=== PATIENT | female | born 1965 | race Caucasian/White ===

== ENCOUNTER → 2016-05-05 | Day surgery (SDC) | payer MEDICARE ==
[2016-05-05] VITALS (7 sets, daily range): BP systolic 107–156; BP diastolic 64–97
[~2016-05-05] VITALS: Ht 162.5 cm; Wt 99.8 kg
[~2016-05-05] MED LIST: ACETAMINOPHEN-H1 TA2 PO; ALBUTEROL0.09 MG/A2 IH; ALBUTEROL0.09 MG/A2 INH; ALPRAZOLAM0.5 M3 PO; AMBIEN10 MG PO; ATIVAN0.5 MG PO; BACTRIM DS 8001 TA1 PO; BENTYL10 MG PO; BUSPIRONE15 MG PO; CEPHALEXIN500 M1 PO; CIPROFLOXACIN500 MG PO; CLINDAMYCIN HC300 MG PO; COMBIVENT RESPIM4 GM INH; DAYPRO600 M1 PO; DIFLUCAN150 MG PO; DOCUSATE SODIU100 M2 PO; DOXYCYCLINE HY100 M5 PO; DUONEB 3 MG/3 ML3 M1 INH; FLEXERIL5 MG PO; FLONASE 0.05% 121 EA NAS; GLIMEPIRIDE4 M1 PO; GLIPIZIDE10 M1 PO; GLUCOPHAGE1000 MG PO; HARVONI1 TAB PO; HYDROCODONE BIT1 T11 PO; HYDROXYYZINE PA25 MG PO; INSULIN; JANUVIA100 MG PO; KAPIDEX60 MG PO; KEFLEX500 MG PO; LEVAQUIN750 MG PO; LOPRESSOR25 MG PO; LOSARTAN POTAS100 M1 PO; MACROBID100 M1 PO; MEDROL DOSEPAK4 MG PO; MIRALAX POWDER17 G1 PO; MOTRIN800 MG PO; NAPROSYN500 MG PO; NASONEX0.05 MG/AC NS; NEBULIZER DEVI; NEURONTIN300 MG PO; NEURONTIN800 MG PO; NEXIUM40 MG PO; NORCO 10-325 T1 EACH PO; NORCO 5-325 TA1 EACH PO; PAROXETINE20 MG PO; PEN-VEE K500 MG PO; PERCOCET 325 MG1 TA2 PO; PERCOCET 325 MG1 TA6 PO; PREDNICOT20 MG PO; PREDNISONE1 MG PO; PREDNISONE10 MG PO; PREDNISONE20 M1 PO; PREDNISONE50 MG PO; PRILOSEC20 MG PO; PROVENTIL0.09 MG/A1 INH; PYRIDIUM200 MG PO; QUETIAPINE FUM100 M3 PO; RESTORIL15 MG PO; ROBAXIN750 MG PO; TESSALON PERLE200 MG PO; TOPROL XL25 MG PO; TRAMADOL HCL50 MG PO; TYLENOL W/CODEI1 TA2 PO; VIBRAMYCIN100 MG PO; VICODIN 5/500 505 MG PO; VICODIN 500 MG-1 TAB PO; Vicodin 5/500 505 MG PO; XANAX XR0.5 MG PO; XANAX0.5 MG PO; ZITHROMAX Z PA250 MG PO; Zofran4 MG PO; [UNRECOGNIZED DRUG - SUPPLY] MC
--- NOTE | ~2016-05-05 | O ---
[place], [place] OPERATIVE NOTE [facility]: [facility] [id number] UNIT #: [id number] ROOM: DOCTOR: LAVERNE DARLING MD BIRTHDATE: [birth year] DOS: 05/05/2016 PREOPERATIVE DIAGNOSIS: Recurrent umbilical incisional hernia, possible incarceration. POSTOPERATIVE DIAGNOSIS: Recurrent incarcerated umbilical incisional hernia. PROCEDURE DONE: Repair with mesh. SURGEON: Laverne Darling MD ANESTHESIA: General. DESCRIPTION OF PROCEDURE: After general anesthesia, the patient prepped and draped in normal sterile fashion. The periumbilical vertical incision made, deepened down to the sac, is completely dissected free from the surrounding structure all the way up to the rectus sheath and is completely excised. Further evaluation reveals 2 more hernias, there is a small opening in the lower portion left side of the previous hernia and all these hernias were completely reduced and sac sent for examination. The area of the rectus sheath lateral to the edge of the incision on both side was freed almost 4-5 cm and then released incision made on the rectus sheath on each side to accommodate closure. Using #1 PDS [id number] sutures are used to close the defect and then soft mesh 6 x 6 section on the area of closure and using 2-0 Vicryl, this mesh is tacked down to the already closed fascia. Because of the large subcutaneous defect, ZURDO is inserted through a separate stab wound from the right side and fixed to skin with 3-0 nylon. Subcutaneous tissue closed with 3-0 PDS and the skin of the belly button was also tied down to make a normal looking umbilicus. Once this was completed, second layer with 3-0 PDS, skin with clips. Dressing applied and we will give her a binder. The patient tolerated the procedure well and was sent to room. Laverne Darling MD CM:OPRECORD:OPERATIVE NOTE 1326 [id number] LAVERNE DARLING MD 05/08/16 1420 interface
== END | disposition home or self-care (01) ==
LOC: SDC 05-02 11:00
DX: K42.0 Umbilical hernia with obstruction, without gangrene (principal); F41.9 Anxiety disorder, unspecified; F32.9 Major depressive disorder, single episode, unspecified; M19.90 Unspecified osteoarthritis, unspecified site; J44.9 Chronic obstructive pulmonary disease, unspecified; E11.9 Type 2 diabetes mellitus without complications; K21.9 Gastro-esophageal reflux disease without esophagitis; I10 Essential (primary) hypertension; B19.20 Unspecified viral hepatitis C without hepatic coma; Z86.14 Personal history of Methicillin resistant Staphylococcus aureus infection; Z90.710 Acquired absence of both cervix and uterus; Z98.890 Other specified postprocedural states; F17.210 Nicotine dependence, cigarettes, uncomplicated; Z80.9 Family history of malignant neoplasm, unspecified; Z82.49 Family history of ischemic heart disease and other diseases of the circulatory system

== ENCOUNTER 2016-07-28 16:57 | Emergency (ER) | payer MEDICARE ==
[~2016-07-28] VITALS: Wt 102.1 kg
[2016-07-28 17:31] VITALS: BP 118/92
[2016-07-28 18:17] LABS: BASO # 0.1 10*3/uL (0.0-0.1); BASO % 0.6 % (0.0-1.0); EOS # 0.3 10*3/uL (0.0-0.4); HEMATOCRIT 42.8 % (37.0-47.0); HEMOGLOBIN 14.4 g/dl (12.0-16.0); LYMPH # 3.9 10*3/uL (1.3-4.4); LYMPH % 39.1 % (27.0-41.0); MEAN CORPUSCULAR HGB 32.3 pg (27.0-31.0); MEAN CORPUSCULAR HGB CONC 33.6 g/dl (33.0-37.0); MEAN PLATELET VOLUME 10.5 fl (9.6-12.3); MONO # 0.5 10*3/uL (0.1-1.0); MONO % 5.3 % (3.0-9.0); NEUT # 5.2 10*3/uL (2.3-7.9); NEUT % 51.7 % (47.0-73.0); PLATELET COUNT AUTOMATED 176 10*3/uL (130-400); RED BLOOD COUNT 4.46 10*6/uL (4.10-5.10); RED CELL DISTRI WIDTH 12.7 % (0-14.5)
[2016-07-28 18:34] LABS: ALBUMIN 3.6 gm/dl (3.1-4.5); ALKALINE PHOSPHATASE 83 U/L (45-117); BILIRUBIN, TOTAL 0.3 mg/dl (0.2-1.0); BUN 13 mg/dl (7-24); CARBON DIOXIDE 29 mmol/L (21-32); CHLORIDE 106 mmol/L (98-107); EST GLOM FILT AFRICAN AMERICAN > 60 ml/min; GLUCOSE 98 mg/dL (65-99); POTASSIUM 4.2 mmol/L (3.5-5.1); SGOT/AST 47 IU/L (3-35); SGPT/ALT 50 U/L (12-78); SODIUM 142 mmol/L (136-145)
[2016-07-28] MEDS ORDERED: ZOFRAN ODT4 MG SL (19:15)
[2016-07-28 19:28] LABS: BILIRUBIN NEGATIVE (NEGATIVE); BLOOD NEGATIVE (NEGATIVE); CLARITY SL CLOUDY (CLEAR); COLOR YELLOW (YELLOW); GLUCOSE NEGATIVE (NEGATIVE); KETONE NEGATIVE (NEGATIVE); LEUKO ESTERASE NEGATIVE (NEGATIVE); NITRITE NEGATIVE (NEGATIVE); PH 5.5 (5.0-9.0); PROTEIN NEGATIVE (NEGATIVE); SPECIFIC GRAVITY 1.025 (1.005-1.030); UROBILINOGEN 0.2 E.U./dl (0.2-1.0)
[2016-07-28] MEDS ORDERED: HYDROCODONE BIT1 T11 PO (19:39)
[2016-07-28 19:51] LABS: EPITHELIAL CELLS 0-2; URINE REFLEX COMMENT NO (NO); WBC 0-2 wbc/hpf (0-5)
== END 2016-07-28 19:34 | disposition home or self-care (01) ==
LOC: ED 16:57
PROVIDERS: Nurse Practitioner Family
DX: K42.9 Umbilical hernia without obstruction or gangrene (principal); F17.200 Nicotine dependence, unspecified, uncomplicated; E11.65 Type 2 diabetes mellitus with hyperglycemia; Z88.1 Allergy status to other antibiotic agents; Z88.6 Allergy status to analgesic agent; Z79.899 Other long term (current) drug therapy

== ENCOUNTER 2016-09-21 23:24 | Emergency (ER) | payer MEDICARE ==
[~2016-09-21] VITALS: Ht 162.5 cm; Wt 99.8 kg
[~2016-09-21 23:24] MED LIST changes: +ZOFRAN ODT4 MG SL
[2016-09-22 00:14] LABS: BASO # 0.1 10*3/uL (0.0-0.1); BASO % 0.5 % (0.0-1.0); EOS # 0.7 10*3/uL (0.0-0.4); EOS % 5.4 % (1.0-4.0); HEMATOCRIT 36.6 % (37.0-47.0); HEMOGLOBIN 12.5 g/dl (12.0-16.0); IG # 0.1 10*3/uL (0.0-0.1); LYMPH # 4.5 10*3/uL (1.3-4.4); LYMPH % 34.5 % (27.0-41.0); MEAN CELL VOLUME 94.8 fl (81.0-99.0); MEAN CORPUSCULAR HGB 32.4 pg (27.0-31.0); MEAN CORPUSCULAR HGB CONC 34.2 g/dl (33.0-37.0); MEAN PLATELET VOLUME 10.3 fl (9.6-12.3); MONO # 0.8 10*3/uL (0.1-1.0); MONO % 5.9 % (3.0-9.0); NEUT % 53.3 % (47.0-73.0); PLATELET COUNT AUTOMATED 285 10*3/uL (130-400); RED BLOOD COUNT 3.86 10*6/uL (4.10-5.10); RED CELL DISTRI WIDTH 12.9 % (0-14.5); WHITE BLOOD COUNT 13.1 10*3/uL (4.8-10.8)
[2016-09-22 00:19] LABS: ALBUMIN 2.8 gm/dl (3.1-4.5); ALKALINE PHOSPHATASE 88 U/L (45-117); BILIRUBIN, TOTAL 0.3 mg/dl (0.2-1.0); BUN 9 mg/dl (7-24); C-REACTIVE PROTEIN 8.29 MG/DL (0-0.3); CARBON DIOXIDE 27 mmol/L (21-32); CHLORIDE 105 mmol/L (98-107); EST GLOM FILT AFRICAN AMERICAN > 60 ml/min; GLUCOSE 162 mg/dL (65-99); MAGNESIUM 2.4 mg/dL (1.5-2.1); POTASSIUM 3.9 mmol/L (3.5-5.1); SGOT/AST 20 IU/L (3-35); SGPT/ALT 19 U/L (12-78); SODIUM 139 mmol/L (136-145); TOTAL PROTEIN 7.6 gm/dL (6.4-8.2)
[2016-09-22] MEDS ORDERED: NEURONTIN600 MG PO (00:43)
[2016-09-22 07:41] VITALS: BP 99/49
== END 2016-09-22 10:05 | disposition short-term general hospital (02) ==
LOC: ED 23:24
PROVIDERS: Emergency Medicine Emergency Medical Services
DX: T81.4XXA Infection following a procedure, initial encounter (principal); J44.9 Chronic obstructive pulmonary disease, unspecified; E11.9 Type 2 diabetes mellitus without complications; I10 Essential (primary) hypertension; Z98.890 Other specified postprocedural states; Z90.710 Acquired absence of both cervix and uterus; Z79.899 Other long term (current) drug therapy; Z88.1 Allergy status to other antibiotic agents; Z88.6 Allergy status to analgesic agent

== ENCOUNTER → 2016-10-21 | Outpatient (CLI) | payer MEDICARE ==
[~2016-10-21] MED LIST changes: +NEURONTIN600 MG PO
[2016-10-21 13:12] LABS: BUN 12 mg/dl (7-24); EST GLOM FILT AFRICAN AMERICAN > 60 ml/min
== END | disposition home or self-care (01) ==
LOC: LAB 12:38 → CT 13:00
DX: K43.9 Ventral hernia without obstruction or gangrene (principal); R10.9 Unspecified abdominal pain; L02.91 Cutaneous abscess, unspecified

== ENCOUNTER → 2016-10-30 | Outpatient (CLI) | payer MEDICARE, OTHER ==
[2016-10-30 15:14] LABS: BASO # 0.1 10*3/uL (0.0-0.1); BASO % 0.4 % (0.0-1.0); EOS # 0.3 10*3/uL (0.0-0.4); EOS % 2.9 % (1.0-4.0); HEMATOCRIT 43.8 % (37.0-47.0); HEMOGLOBIN 14.6 g/dl (12.0-16.0); LYMPH # 4.7 10*3/uL (1.3-4.4); LYMPH % 42.2 % (27.0-41.0); MEAN CORPUSCULAR HGB 31.3 pg (27.0-31.0); MEAN CORPUSCULAR HGB CONC 33.3 g/dl (33.0-37.0); MEAN PLATELET VOLUME 10.1 fl (9.6-12.3); MONO # 0.6 10*3/uL (0.1-1.0); MONO % 5.3 % (3.0-9.0); NEUT # 5.4 10*3/uL (2.3-7.9); NEUT % 48.9 % (47.0-73.0); PLATELET COUNT AUTOMATED 204 10*3/uL (130-400); RED BLOOD COUNT 4.66 10*6/uL (4.10-5.10); RED CELL DISTRI WIDTH 13.8 % (0-14.5); WHITE BLOOD COUNT 11.1 10*3/uL (4.8-10.8)
[2016-10-30 15:43] LABS: PROTHROMBIN TIME 10.2 SECONDS (9.0-12.4)
[2016-10-30 15:45] LABS: ALBUMIN 3.6 gm/dl (3.1-4.5); ALKALINE PHOSPHATASE 85 U/L (45-117); BILIRUBIN, TOTAL 0.5 mg/dl (0.2-1.0); BUN 11 mg/dl (7-24); CARBON DIOXIDE 27 mmol/L (21-32); CHLORIDE 104 mmol/L (98-107); EST GLOM FILT AFRICAN AMERICAN > 60 ml/min; GLUCOSE 171 mg/dL (65-99); POTASSIUM 3.7 mmol/L (3.5-5.1); SGOT/AST 44 IU/L (3-35); SGPT/ALT 54 U/L (12-78); SODIUM 139 mmol/L (136-145); TOTAL PROTEIN 8.5 gm/dL (6.4-8.2)
== END | disposition home or self-care (01) ==
LOC: LAB 14:43
PROVIDERS: Surgery
DX: Z01.818 Encounter for other preprocedural examination (principal); J43.9 Emphysema, unspecified; F17.210 Nicotine dependence, cigarettes, uncomplicated; K43.9 Ventral hernia without obstruction or gangrene

== ENCOUNTER 2016-12-15 00:48 | Emergency (ER) | payer MEDICARE, OTHER ==
[~2016-12-15] VITALS: Ht 165.1 cm; Wt 99.8 kg
[2016-12-15 00:56] VITALS: BP 108/70
[2016-12-15 02:13] LABS: BASO # 0.1 10*3/uL (0.0-0.1); BASO % 0.6 % (0.0-1.0); EOS # 0.3 10*3/uL (0.0-0.4); EOS % 3.4 % (1.0-4.0); HEMATOCRIT 35.7 % (37.0-47.0); HEMOGLOBIN 12.1 g/dl (12.0-16.0); LYMPH # 3.9 10*3/uL (1.3-4.4); MEAN CELL VOLUME 92.7 fl (81.0-99.0); MEAN CORPUSCULAR HGB 31.4 pg (27.0-31.0); MEAN CORPUSCULAR HGB CONC 33.9 g/dl (33.0-37.0); MEAN PLATELET VOLUME 10.1 fl (9.6-12.3); MONO # 0.7 10*3/uL (0.1-1.0); MONO % 7.4 % (3.0-9.0); NEUT # 4.1 10*3/uL (2.3-7.9); PLATELET COUNT AUTOMATED 190 10*3/uL (130-400); RED BLOOD COUNT 3.85 10*6/uL (4.10-5.10); WHITE BLOOD COUNT 9.1 10*3/uL (4.8-10.8)
[2016-12-15 02:28] LABS: ALBUMIN 2.9 gm/dl (3.1-4.5); ALKALINE PHOSPHATASE 79 U/L (45-117); BUN 8 mg/dl (7-24); CHLORIDE 103 mmol/L (98-107); LIPASE 418 U/L (73-393); POTASSIUM 3.4 mmol/L (3.5-5.1); SGOT/AST 26 IU/L (3-35); SGPT/ALT 31 U/L (12-78); SODIUM 138 mmol/L (136-145); TOTAL PROTEIN 7.5 gm/dL (6.4-8.2)
== END 2016-12-15 03:48 | disposition home or self-care (01) ==
LOC: ED 00:48
PROVIDERS: Student in an Organized Health Care Education/Training Program
DX: S31.109A Unspecified open wound of abdominal wall, unspecified quadrant without penetration into peritoneal cavity, initial encounter (principal); I10 Essential (primary) hypertension; E11.9 Type 2 diabetes mellitus without complications; J44.9 Chronic obstructive pulmonary disease, unspecified; F17.200 Nicotine dependence, unspecified, uncomplicated; Z88.1 Allergy status to other antibiotic agents; Z88.6 Allergy status to analgesic agent; Z79.899 Other long term (current) drug therapy; X58.XXXA Exposure to other specified factors, initial encounter; Y93.9 Activity, unspecified; Y92.9 Unspecified place or not applicable; Y99.9 Unspecified external cause status

== ENCOUNTER → 2017-02-13 | Outpatient (CLI) | payer MEDICARE, OTHER | LOC: CT 08:50 | DX: K76.0 Fatty (change of) liver, not elsewhere classified (principal); A49.01 Methicillin susceptible Staphylococcus aureus infection, unspecified site; E11.9 Type 2 diabetes mellitus without complications; T81.4XXA Infection following a procedure, initial encounter; B19.20 Unspecified viral hepatitis C without hepatic coma; Z90.49 Acquired absence of other specified parts of digestive tract; Z90.710 Acquired absence of both cervix and uterus; Z98.890 Other specified postprocedural states ==

== ENCOUNTER → 2017-04-01 | Outpatient (CLI) | payer MEDICARE, OTHER | END | disposition home or self-care (01) | LOC: WOUNDCARE 14:43 | DX: T81.31XA Disruption of external operation (surgical) wound, not elsewhere classified, initial encounter (principal); I10 Essential (primary) hypertension; F41.9 Anxiety disorder, unspecified; E11.9 Type 2 diabetes mellitus without complications; F17.210 Nicotine dependence, cigarettes, uncomplicated; Z90.710 Acquired absence of both cervix and uterus; Z72.89 Other problems related to lifestyle; Y83.8 Other surgical procedures as the cause of abnormal reaction of the patient, or of later complication, without mention of misadventure at the time of the procedure ==

== ENCOUNTER 2017-04-07 21:15 | Inpatient (IN) | payer MEDICARE, OTHER ==
[~2017-04-07] VITALS: Ht 162.5 cm; Wt 98.6 kg
--- NOTE | ~2017-04-07 | EKG ---
[place], [place] ELECTROCARDIOGRAM REPORT NAME: KRISTINA JACK UNIT #: [id number] ROOM: 407 DOCTOR: DEBRA NG,MILDRED BIRTHDATE: [birth year] DOS: 04/07/2017 TIME: 2312 hours. IMPRESSION: 1. Sinus rhythm. 2. Normal QT interval. MILDRED RICHARDSON MD CM:EKGRPT:ELECTROCARDIOGRAM REPORT 1408 1740 MILDRED RICHARDSON MD
--- NOTE | ~2017-04-07 | CON ---
[place], [place] REPORT OF CONSULTATION NAME: KRISTINA JACK UNIT #: [id number] ROOM: 407 DOCTOR: ART MORENO ED.D (ISABELLA) BIRTHDATE: [birth year] DOS: 04/10/2017 HISTORY OF PRESENT ILLNESS: The patient is a 52-year-old female referred by the hospitalist for evaluation of her anxiety. At the present time, this patient is in the intensive care unit [facility]. She states she is currently residing with her partner and she does have 2 children. She is on SSI. Her family physician is Dr. [place] and medical history is pertinent for morbid obesity, COPD, hypertension, coronary artery disease, and anxiety. She states she does smoke 2 packs of cigarettes per day, but is quitting. She rarely drinks alcohol and on occasion does smoke marijuana. Diabetes mellitus type 2. MEDICATIONS: Include albuterol, Nexium, glipizide, losartan, Toprol, Seroquel, and Januvia. This patient was awake, alert and oriented in all three spheres. She does admit to be anxious because she is overwhelmed. At one time, she followed with Dr. Lopez for outpatient psychiatric care and he prescribed Valium, later changing that to Xanax. She states that it made her feel like a zombie and she states that she will not take those type of medications again. She was placed on Seroquel for sleep, but does not like the way it makes her so lethargic. I suggested she might benefit from a medication such as Vistaril. This was relayed to the hospitalist. She does not want any outpatient psychotherapy, but states she will start addressing her problems because she is easily taken advantage of. DIAGNOSIS: Generalized anxiety disorder. RECOMMENDATIONS: The patient would possibly benefit from medications to address her anxiety and sleep issues, although she does not want benzodiazepines. Thank you very much for this consult. ART MORENO ED.D CM:CONSTR:REPORT OF CONSULTATION 1557 04/10/17 4647 interface
--- NOTE | ~2017-04-07 | CON ---
[place], [place] REPORT OF CONSULTATION NAME: KRISTINA JACK [facility] #: [id number] UNIT #: [id number] ROOM: 407 DOCTOR: ARSH HENRY MD BIRTHDATE: [birth year] DOS: 04/11/2017 CONSULTATION REQUESTED BY: Hospitalist services. REASON FOR CONSULTATION: To assess the patient for acute ongoing exacerbation of chronic obstructive pulmonary disease. HISTORY OF PRESENT ILLNESS: A 52-year-old white female known to me, has been followed by the resident clinic. The patient has been noted with symptoms of shortness of breath ongoing for about a week or so. She has been also noted symptoms of wheezing with coughing. The symptoms started with acute cold-like symptoms in the beginning later noted progressive increased respiratory symptom. She has been seen by the primary care physician and was started on tapering dose of prednisone and Levaquin earlier that did not result in improvement and the respiratory symptom progressive worsening continued. She has been currently admitted to the hospital. The patient is being treated for patient acute exacerbation of COPD on 04/09/2017. The patient denies any symptoms of chest pain. The shortness of breath, cough. The patient has been noted partially decreased. The patient has been continued corticosteroids, receiving bronchodilators and other treatments. REVIEW OF SYSTEMS: CONSTITUTIONAL SYMPTOMS: Fatigue and tiredness noted without symptoms of fever or chills. EYES: Denies any burning, redness, discharge. EARS, NOSE AND THROAT: Denies sore throat, hoarseness, otalgia, postnasal drainage or epistaxis. CARDIOVASCULAR: Denies angina pain, palpitation, edema or pain of the lower extremities. GASTROINTESTINAL: Dysphagia, nausea, vomiting, diarrhea, abdominal pain, hematemesis, melena, hematochezia. SKIN: Denies lesions or rashes. CENTRAL NERVOUS SYSTEM: No dizziness, headache, diplopia, syncopal episodes. Remaining systems were reviewed. The patient, they were noted all negative. PAST MEDICAL HISTORY: 1. Reported diagnosis of chronic obstructive pulmonary disease. 2. General anxiety disorder. 3. Gastroesophageal reflux. 4. Umbilical hernia repair previously with recurrence from the past, hernia repair in the umbilical area. 5. Essential hypertension. 6. Chronic obesity. 7. Neuropathy. 8. Type 2 diabetes mellitus as well. PAST SURGICAL HISTORY: 1. Noted with history of bladder surgery. 2. Cholecystectomy. [place], [place] REPORT OF CONSULTATION NAME: KRISTINA JACK UNIT #: [id number] ROOM: 407 DOCTOR: PALMA ROSS MD,ARSH BIRTHDATE: [birth year] 3. Partial hysterectomy. 4. Tonsillectomy. 5. Umbilical hernia repair. SOCIAL HISTORY: The patient is , has 2 children lived at home, has been noted with heavy tobacco use starting since teenager up to 2 packs of cigarettes per day in the past 3 months has decreased the tobacco use to about 10 cigarettes a day. Denies history of alcohol use, illicit drug use. Denies any occupation related pulmonary exposure. FAMILY HISTORY: The patient was unknown for the father. Mother is living, history of coronary artery disease. HOME MEDICATIONS: Listed as use of Ventolin with the nebulizer, Nexium, gabapentin, glipizide, losartan, metoprolol tartrate, Seroquel, and Januvia. DRUG ALLERGIES WERE NOTED: THE PATIENT HAS ALLERGIES TO THE TYLENOL NO. 3 WITH CODEINE AND LEVAQUIN. PHYSICAL EXAMINATION: GENERAL: This is a 52-year-old female who has been currently noted awake and alert without any distress, lying in the bed. Height of 5 feet 4 inches, weight of 117 pounds, BMI 37.3. VITAL SIGNS: The patient shows a normal temperature, respiratory rate of 18-20, heart rate 72-71, blood pressure 126/89-114/68. The pulse oxygen saturation on room air was recorded 95% saturation. HEENT: Moderate obese. Head was atraumatic. Eyes nonicterus. Decreased posterior pharyngeal space, high tongue base crowding of soft tissue structures. Oral mucosa is moist. CARDIOVASCULAR SYSTEM: S1, S2 is audible. LUNGS: Noted with moderate decreased breath sounds with mild to moderate expiratory wheezing, no crackles. ABDOMEN: Soft with moderate obesity. EXTREMITIES: The patient noted without any edema, clubbing, cyanosis. CENTRAL NERVOUS SYSTEM: Cranial nerves 2-12 intact. MUSCULOSKELETAL: No deformities. SKIN: No visible lesions or rashes. LABORATORY DATA: Arterial blood gas, the patient that was done for the patient on the of this month, pH of 7.36, pCO2 of 39, pO2 19 and 4 liter nasal cannula supplementation of oxygen. The CBC of the patient on 04/07/2017 was noted as normal completely. CMP on 04/07/2017 on admission, BUN normal, creatinine minimally elevated as 1.03. Lactic acid on 04/07/2017 was normal as 1.7. Influenza A and B, nasal washing antigen negative. PT/PTT on the was normal. The BMP on the , glucose 274, remaining BMP was normal. Blood cultures . The patient two sets, both noted with no bacterial growth at this time with final culture results pending. The additional 2 culture taken were noted no bacterial growth as well. Sputum culture is noted spontaneous on 04/09/2017, final results no bacterial growth. CBC this morning, normal. Wound culture of the abdomen. The patient noted heavy growth of Staph aureus for this [place], [place] REPORT OF CONSULTATION NAME: KRISTINA JACK UNIT #: [id number] ROOM: [facility] DOCTOR: PALMA ROSS MD,[facility] BIRTHDATE: [birth year] patient from the site of previously treated hernia. The radiology data review for this patient was personally performed. The chest x-ray of the patient, which are reviewed from the PACS images. The patient 2-view on 04/07/2017 does not show any acute pulmonary infiltration. CT scan of the paranasal sinuses without contrast. The patient was also reviewed for this patient shows near Klebsiella complete opacification of left maxillary sinuses as a hypertrophy of the left middle and inferior turbinates. The CT of the chest was done on 04/09/2017 was reviewed and does not show any evidence of pulmonary embolism. There was no lymphadenopathy. Moderate to severe changes of emphysema was noted in the lungs appear to be centrilobular as well as a paraseptal variety. There were no abnormal pulmonary nodules seen. IMPRESSION: 1. The patient who has been currently admitted to the hospital and being treated for acute exacerbation of chronic obstructive pulmonary disease, acute tracheobronchitis for this patient failed outpatient treatment as well as the left maxillary acute sinusitis, bacterial in origin to be considered. 2. Acute bacterial bronchitis with failed outpatient therapy as well. 3. History of chronic nicotine dependence. 4. Abdominal wound. The patient from past hernia in the abdomen with isolation of Staph aureus as well. 5. Moderate obesity was also noted. 6. Uncontrolled diabetes mellitus. I can the use of the corticosteroids. The blood glucose noted more than 500 yesterday. PLAN OF MANAGEMENT: Agree with the reduction of Solu-Medrol for this patient since the wheezing has been improving. Continue abstinence from the tobacco. The patient using nicotine replacement in the form of a nicotine inhaler as well. Antibiotic coverage. The patient to be continued for the medical management of sinusitis. The patient and wound infection at the present time. Addition of changes for the medical hyperglycemia has been made with sliding scale coverage. Any addition or other oral hypoglycemic agents use. Supportive therapy plan and management. Ambulation was advised. Usual care, other supportive therapy, plan of management and care plan. Possible consideration for discharge in the morning as well could be considered. ARSH WALDROP MD CM:CONSTR:REPORT OF CONSULTATION 1445 04/11/17 2386 interface
--- NOTE | ~2017-04-07 | EKG ---
[place], [place] ELECTROCARDIOGRAM REPORT NAME: KRISTINA JACK UNIT #: [id number] ROOM: 407 DOCTOR: MILDRED RICHARDSON MD BIRTHDATE: [birth year] DOS: 04/09/2017 TIME: 1513 Hours. IMPRESSION: 1. Sinus rhythm. 2. Nonspecific ST-T changes. 3. Normal QT interval. MILDRED RICHARDSON MD CM:EKGRPT:ELECTROCARDIOGRAM REPORT 1434 1903 MILDRED RICHARDSON MD
[2017-04-07 17:21] LABS: BASO % 0.4 % (0.0-1.0); EOS # 0.2 10*3/uL (0.0-0.4); EOS % 2.2 % (1.0-4.0); HEMATOCRIT 43.1 % (37.0-47.0); HEMOGLOBIN 14.9 g/dl (12.0-16.0); LYMPH # 3.9 10*3/uL (1.3-4.4); LYMPH % 38.4 % (27.0-41.0); MEAN CELL VOLUME 92.1 fl (81.0-99.0); MEAN CORPUSCULAR HGB 31.8 pg (27.0-31.0); MEAN CORPUSCULAR HGB CONC 34.6 g/dl (33.0-37.0); MEAN PLATELET VOLUME 10.5 fl (9.6-12.3); MONO # 0.5 10*3/uL (0.1-1.0); MONO % 4.9 % (3.0-9.0); NEUT # 5.5 10*3/uL (2.3-7.9); NEUT % 53.9 % (47.0-73.0); PLATELET COUNT AUTOMATED 198 10*3/uL (130-400); RED BLOOD COUNT 4.68 10*6/uL (4.10-5.10); RED CELL DISTRI WIDTH 13.2 % (0-14.5); WHITE BLOOD COUNT 10.1 10*3/uL (4.8-10.8)
[2017-04-07 17:56] LABS: ALBUMIN 3.6 gm/dl (3.1-4.5); ALKALINE PHOSPHATASE 94 U/L (45-117); BUN 10 mg/dl (7-24); CHLORIDE 100 mmol/L (98-107); CREATININE 1.03 mg/dL (0.55-1.02); POTASSIUM 4.2 mmol/L (3.5-5.1); SGOT/AST 54 IU/L (3-35); SGPT/ALT 52 U/L (12-78); SODIUM 135 mmol/L (136-145); TOTAL PROTEIN 8.2 gm/dL (6.4-8.2)
[2017-04-07 21:22] VITALS: BP 149/85
[2017-04-07 22:13] LABS: BILIRUBIN NEGATIVE (NEGATIVE); BLOOD NEGATIVE (NEGATIVE); CLARITY SL CLOUDY (CLEAR); COLOR YELLOW (YELLOW); GLUCOSE 3+ (NEGATIVE); KETONE TRACE (NEGATIVE); LEUKO ESTERASE NEGATIVE (NEGATIVE); NITRITE NEGATIVE (NEGATIVE)
[2017-04-07 22:14] LABS: BASO % 0.3 % (0.0-1.0); EOS % 0.3 % (1.0-4.0); HEMATOCRIT 43.9 % (37.0-47.0); HEMOGLOBIN 15.2 g/dl (12.0-16.0); LYMPH % 11.5 % (27.0-41.0); MEAN CELL VOLUME 91.8 fl (81.0-99.0); MEAN CORPUSCULAR HGB 31.8 pg (27.0-31.0); MEAN CORPUSCULAR HGB CONC 34.6 g/dl (33.0-37.0); MEAN PLATELET VOLUME 11.1 fl (9.6-12.3); MONO # 0.1 10*3/uL (0.1-1.0); MONO % 0.9 % (3.0-9.0); NEUT # 7.7 10*3/uL (2.3-7.9); NEUT % 86.7 % (47.0-73.0); PLATELET COUNT AUTOMATED 201 10*3/uL (130-400); RED BLOOD COUNT 4.78 10*6/uL (4.10-5.10); RED CELL DISTRI WIDTH 13.1 % (0-14.5); WHITE BLOOD COUNT 8.9 10*3/uL (4.8-10.8)
[2017-04-07 22:24] LABS: BACTERIA TRACE
[2017-04-07 22:26] LABS: RBC 51-100 rbc/hpf (0-2)
[2017-04-07 22:30] LABS: ALBUMIN 3.6 gm/dl (3.1-4.5); ALKALINE PHOSPHATASE 104 U/L (45-117); BUN 13 mg/dl (7-24); CHLORIDE 98 mmol/L (98-107); POTASSIUM 4.4 mmol/L (3.5-5.1); SGOT/AST 51 IU/L (3-35); SGPT/ALT 62 U/L (12-78); SODIUM 135 mmol/L (136-145); TOTAL PROTEIN 8.8 gm/dL (6.4-8.2)
[2017-04-07 22:57] VITALS: BP 140/77
[2017-04-08] VITALS (8 sets, daily range): BP systolic 121–148; BP diastolic 40–98
[2017-04-08] MEDS ORDERED: NEURONTIN300 MG PO (00:22)
[2017-04-08] MEDS ORDERED: VENTOLIN 02.5 MG/3 M INH (00:23)
[2017-04-08 06:51] LABS: HEMATOCRIT 39.7 % (37.0-47.0); HEMOGLOBIN 13.9 g/dl (12.0-16.0); MEAN CELL VOLUME 92.3 fl (81.0-99.0); MEAN CORPUSCULAR HGB 32.3 pg (27.0-31.0); MEAN PLATELET VOLUME 10.8 fl (9.6-12.3); PLATELET COUNT AUTOMATED 177 10*3/uL (130-400); RED CELL DISTRI WIDTH 13.1 % (0-14.5)
[2017-04-08 07:12] LABS: PLATELET SUFFICIENCY NORMAL (NORMAL); TOTAL CELLS COUNTED 100 #CELLS
[2017-04-08 07:30] LABS: ACT PARTIAL THROMBO TIME 24.3 SECONDS (20.8-31.5)
[2017-04-08 07:46] LABS: ALBUMIN 3.1 gm/dl (3.1-4.5); BUN 15 mg/dl (7-24); CHLORIDE 97 mmol/L (98-107); CHOLESTEROL 191 mg/dL (<200); POTASSIUM 4.1 mmol/L (3.5-5.1); SGOT/AST 29 IU/L (3-35); SGPT/ALT 50 U/L (12-78); SODIUM 131 mmol/L (136-145); TRIGLYCERIDES 90 mg/dl (<150); VLDL CHOLESTEROL 18 mg/dL (6-40)
[2017-04-08 07:53] LABS: ALKALINE PHOSPHATASE 92 U/L (45-117); HDL CHOLESTEROL 41 mg/dl (40-60); LDL CHOLESTEROL 132 mg/dL (9-159); THYROID STIM HORMONE (HS) 0.393 uIU/ml (0.358-4.75)
[2017-04-08 09:43] LABS: VITAMIN D, 25-HYDROXY 10.5 ng/mL (30-100)
[2017-04-09] VITALS: BP 132/97
[2017-04-09 06:48] LABS: BUN 19 mg/dl (7-24); CHLORIDE 104 mmol/L (98-107); POTASSIUM 4.3 mmol/L (3.5-5.1); SODIUM 139 mmol/L (136-145)
[2017-04-09 06:49] LABS: CREATININE 0.86 mg/dL (0.55-1.02)
[2017-04-09 08:00] VITALS: BP 126/70; BP 130/88
[2017-04-09 12:00] VITALS: BP 120/70; BP 134/88
[2017-04-09 15:29] LABS: ABG BASE EXCESS -1.3 mmol/L (-2.0-2.0); ABG O2 SATURATION 97.5 % (95-97); ARTERIAL BLOOD GAS PCO2 39.2 mmHg (35-45); ARTERIAL BLOOD GAS PH 7.386 (7.35-7.45); ARTERIAL BLOOD GAS PO2 90.1 mmHg (80-90)
[2017-04-09 15:34] LABS: BASO % 0.1 % (0.0-1.0); EOS % 0.1 % (1.0-4.0); HEMATOCRIT 36.2 % (37.0-47.0); HEMOGLOBIN 12.4 g/dl (12.0-16.0); LYMPH # 3.6 10*3/uL (1.3-4.4); LYMPH % 25.5 % (27.0-41.0); MEAN CELL VOLUME 93.8 fl (81.0-99.0); MEAN CORPUSCULAR HGB 32.1 pg (27.0-31.0); MEAN CORPUSCULAR HGB CONC 34.3 g/dl (33.0-37.0); MEAN PLATELET VOLUME 10.5 fl (9.6-12.3); MONO # 0.8 10*3/uL (0.1-1.0); NEUT # 9.5 10*3/uL (2.3-7.9); NEUT % 67.8 % (47.0-73.0); PLATELET COUNT AUTOMATED 175 10*3/uL (130-400); RED BLOOD COUNT 3.86 10*6/uL (4.10-5.10); RED CELL DISTRI WIDTH 13.5 % (0-14.5); WHITE BLOOD COUNT 13.9 10*3/uL (4.8-10.8)
[2017-04-09 15:50] LABS: ALBUMIN 2.7 gm/dl (3.1-4.5); ALKALINE PHOSPHATASE 68 U/L (45-117); BUN 18 mg/dl (7-24); CHLORIDE 108 mmol/L (98-107); CREATININE 0.84 mg/dL (0.55-1.02); SGOT/AST 11 IU/L (3-35); SGPT/ALT 28 U/L (12-78); SODIUM 140 mmol/L (136-145); TOTAL PROTEIN 6.6 gm/dL (6.4-8.2)
[2017-04-09 15:52] LABS: TROPONIN I < 0.015 ng/ml (<0.045)
[2017-04-09 16:00] VITALS: BP 88/50
[2017-04-09 20:00] VITALS: BP 88/50
[2017-04-10] VITALS: BP 99/65
[2017-04-10 04:00] VITALS: BP 106/57
[2017-04-10 08:00] VITALS: BP 102/66
[2017-04-10 12:00] VITALS: BP 116/77
[2017-04-10 20:00] VITALS: BP 114/68
[2017-04-11] VITALS: BP 129/84
[2017-04-11 06:01] LABS: BASO % 0.1 % (0.0-1.0); EOS # 0.1 10*3/uL (0.0-0.4); EOS % 0.8 % (1.0-4.0); HEMATOCRIT 37.1 % (37.0-47.0); HEMOGLOBIN 12.4 g/dl (12.0-16.0); LYMPH # 3.7 10*3/uL (1.3-4.4); LYMPH % 40.9 % (27.0-41.0); MEAN CELL VOLUME 96.4 fl (81.0-99.0); MEAN CORPUSCULAR HGB 32.2 pg (27.0-31.0); MEAN CORPUSCULAR HGB CONC 33.4 g/dl (33.0-37.0); MEAN PLATELET VOLUME 10.4 fl (9.6-12.3); MONO # 0.5 10*3/uL (0.1-1.0); MONO % 5.4 % (3.0-9.0); NEUT # 4.7 10*3/uL (2.3-7.9); NEUT % 52.1 % (47.0-73.0); PLATELET COUNT AUTOMATED 151 10*3/uL (130-400); RED BLOOD COUNT 3.85 10*6/uL (4.10-5.10); RED CELL DISTRI WIDTH 13.5 % (0-14.5)
[2017-04-11 06:27] LABS: BUN 12 mg/dl (7-24); CHLORIDE 108 mmol/L (98-107); POTASSIUM 3.7 mmol/L (3.5-5.1); SODIUM 142 mmol/L (136-145)
[2017-04-11 06:30] LABS: CREATININE 0.71 mg/dL (0.55-1.02)
[2017-04-11 08:00] VITALS: BP 124/80
[2017-04-11 12:00] VITALS: BP 126/89
[2017-04-11 16:00] VITALS: BP 144/88
[2017-04-11 20:00] VITALS: BP 127/80
[2017-04-12] VITALS: BP 135/89
[2017-04-12 08:00] VITALS: BP 131/85
[2017-04-12] MEDS ORDERED: Motrin,Rufen800 MG PO (10:54)
[2017-04-12] MEDS ORDERED: VITAMIN D5000 UNI1 PO (10:54)
[2017-04-12] MEDS ORDERED: CITALOPRAM HYDR20 MG PO (10:54)
[2017-04-12] MEDS ORDERED: PREDNISONE10 MG PO (10:54)
[2017-04-12] MEDS ORDERED: HYDROXYZINE PAM25 M1 PO (10:54)
[2017-04-12] MEDS ORDERED: DOXYCYCLINE100 M3 PO (10:54)
== END 2017-04-12 11:39 | disposition home or self-care (01) | DRG 862 ==
LOC: EDSTATUS 21:15 → ED 21:16 → ICCU 23:30 → EDHOLD 23:30 → 4E 23:30 → ICCU 04-09 15:38 → 4E 04-10 14:21
PROVIDERS: Family Medicine; Family Medicine Adult Medicine; Internal Medicine; Nurse Practitioner
DX: T81.4XXA Infection following a procedure, initial encounter (principal); A41.9 Sepsis, unspecified organism; J18.9 Pneumonia, unspecified organism; G62.9 Polyneuropathy, unspecified; E11.40 Type 2 diabetes mellitus with diabetic neuropathy, unspecified; E11.65 Type 2 diabetes mellitus with hyperglycemia; E66.01 Morbid (severe) obesity due to excess calories; I08.1 Rheumatic disorders of both mitral and tricuspid valves; E87.1 Hypo-osmolality and hyponatremia; K91.89 Other postprocedural complications and disorders of digestive system; J44.0 Chronic obstructive pulmonary disease with (acute) lower respiratory infection; J44.1 Chronic obstructive pulmonary disease with (acute) exacerbation; K43.2 Incisional hernia without obstruction or gangrene; Y83.8 Other surgical procedures as the cause of abnormal reaction of the patient, or of later complication, without mention of misadventure at the time of the procedure; K21.9 Gastro-esophageal reflux disease without esophagitis; F12.10 Cannabis abuse, uncomplicated; J20.9 Acute bronchitis, unspecified; F41.1 Generalized anxiety disorder; F17.210 Nicotine dependence, cigarettes, uncomplicated; I10 Essential (primary) hypertension; Z87.19 Personal history of other diseases of the digestive system; Z88.8 Allergy status to other drugs, medicaments and biological substances; Z71.6 Tobacco abuse counseling; Z88.6 Allergy status to analgesic agent; Z88.1 Allergy status to other antibiotic agents; Z91.048 Other nonmedicinal substance allergy status; Z79.899 Other long term (current) drug therapy; Z98.891 History of uterine scar from previous surgery; Z90.711 Acquired absence of uterus with remaining cervical stump; Z82.49 Family history of ischemic heart disease and other diseases of the circulatory system; Z80.8 Family history of malignant neoplasm of other organs or systems; Z68.37 Body mass index [BMI] 37.0-37.9, adult; Z79.84 Long term (current) use of oral hypoglycemic drugs; Y92.89 Other specified places as the place of occurrence of the external cause

== ENCOUNTER → 2017-05-19 | Outpatient (CLI) | payer MEDICARE, OTHER ==
[~2017-05-19] MED LIST changes: +CITALOPRAM HYDR20 MG PO; +DOXYCYCLINE100 M3 PO; +HYDROXYZINE PAM25 M1 PO; +Motrin,Rufen800 MG PO; +VENTOLIN 02.5 MG/3 M INH; +VITAMIN D5000 UNI1 PO
== END | disposition home or self-care (01) ==
LOC: WOUNDCARE 00:43
DX: T81.89XD Other complications of procedures, not elsewhere classified, subsequent encounter (principal); E11.9 Type 2 diabetes mellitus without complications; I10 Essential (primary) hypertension; K43.2 Incisional hernia without obstruction or gangrene; E66.01 Morbid (severe) obesity due to excess calories; F41.9 Anxiety disorder, unspecified; F17.200 Nicotine dependence, unspecified, uncomplicated; Z90.710 Acquired absence of both cervix and uterus; Z68.36 Body mass index [BMI] 36.0-36.9, adult; Y83.8 Other surgical procedures as the cause of abnormal reaction of the patient, or of later complication, without mention of misadventure at the time of the procedure

== ENCOUNTER → 2017-06-24 | Outpatient (CLI) | payer MEDICARE, OTHER | END | disposition home or self-care (01) | LOC: WOUNDCARE 07:42 | DX: T81.89XA Other complications of procedures, not elsewhere classified, initial encounter (principal); K43.2 Incisional hernia without obstruction or gangrene; E11.9 Type 2 diabetes mellitus without complications; I10 Essential (primary) hypertension; E66.01 Morbid (severe) obesity due to excess calories; F41.9 Anxiety disorder, unspecified; F17.200 Nicotine dependence, unspecified, uncomplicated; Z68.36 Body mass index [BMI] 36.0-36.9, adult; Z90.710 Acquired absence of both cervix and uterus; Y83.8 Other surgical procedures as the cause of abnormal reaction of the patient, or of later complication, without mention of misadventure at the time of the procedure; Y92.89 Other specified places as the place of occurrence of the external cause ==

== ENCOUNTER 2017-09-21 08:49 | Inpatient (IN) | payer MEDICARE, OTHER ==
[2017-09-21] VITALS (7 sets, daily range): BP systolic 115–145; BP diastolic 71–88
[~2017-09-21] VITALS: Ht 162.5 cm; Wt 97.1 kg
--- NOTE | ~2017-09-21 | CON ---
[place], [place] REPORT OF CONSULTATION NAME: KRISTINA JACK UNIT #: [id number] ROOM: 404 DOCTOR: ARSH HENRY MD BIRTHDATE: [birth year] DOS: 09/22/2017 PULMONARY CONSULTATION CONSULTATION REQUESTED BY: Hospitalist services. REASON FOR CONSULTATION: To assess the patient for assessment of COPD with symptoms of shortness of breath. HISTORY OF PRESENT ILLNESS: A 52-year-old white female patient admitted to the hospital. The patient is complaining of significant pain, which she described in the abdomen with a history of incisional hernia. The incisional hernia has been noted long time. The patient has been also noted with symptoms of nausea and vomiting. The patient does complain of symptoms of shortness of breath with the current symptom. She does have some cough without any sputum expectoration. Denies symptoms of fever or chills. Denies symptoms of hemoptysis. The patient denies any symptoms of chest pain. ARSH WALDROP MD CM:CONSTR:REPORT OF CONSULTATION 1309 09/22/17 2252 interface
[2017-09-21 09:18] LABS: BASO % 0.3 % (0.0-1.0); EOS % 0.3 % (1.0-4.0); HEMOGLOBIN 15.9 g/dl (12.0-16.0); LYMPH # 1.3 10*3/uL (1.3-4.4); MEAN CELL VOLUME 94.5 fl (81.0-99.0); MEAN CORPUSCULAR HGB 32.6 pg (27.0-31.0); MEAN CORPUSCULAR HGB CONC 34.6 g/dl (33.0-37.0); MEAN PLATELET VOLUME 10.5 fl (9.6-12.3); MONO # 0.3 10*3/uL (0.1-1.0); MONO % 3.6 % (3.0-9.0); NEUT # 5.9 10*3/uL (2.3-7.9); NEUT % 78.5 % (47.0-73.0); PLATELET COUNT AUTOMATED 160 10*3/uL (130-400); RED BLOOD COUNT 4.87 10*6/uL (4.10-5.10); RED CELL DISTRI WIDTH 13.1 % (0-14.5); WHITE BLOOD COUNT 7.5 10*3/uL (4.8-10.8)
[2017-09-21 09:32] LABS: ALBUMIN 3.5 gm/dl (3.1-4.5); ALKALINE PHOSPHATASE 90 U/L (45-117); BUN 8 mg/dl (7-24); CHLORIDE 103 mmol/L (98-107); CREATININE 0.91 mg/dL (0.55-1.02); LIPASE 174 U/L (73-393); POTASSIUM 3.8 mmol/L (3.5-5.1); SGOT/AST 31 IU/L (3-35); SGPT/ALT 40 U/L (12-78); SODIUM 133 mmol/L (136-145); TOTAL PROTEIN 8.2 gm/dL (6.4-8.2)
[2017-09-21 09:34] LABS: ACT PARTIAL THROMBO TIME 24.3 SECONDS (20.8-31.5)
[2017-09-21 09:53] LABS: BILIRUBIN NEGATIVE (NEGATIVE); BLOOD NEGATIVE (NEGATIVE); CLARITY CLOUDY (CLEAR); COLOR YELLOW (YELLOW); GLUCOSE 1+ (NEGATIVE); KETONE NEGATIVE (NEGATIVE); LEUKO ESTERASE NEGATIVE (NEGATIVE); NITRITE POSITIVE (NEGATIVE); SPECIFIC GRAVITY 1.025 (1.005-1.030)
[2017-09-21 10:06] LABS: BACTERIA 4+; EPITHELIAL CELLS 16-20; WBC 21-30 wbc/hpf (0-5)
[2017-09-22] VITALS: BP 136/87
[2017-09-22 06:04] LABS: BASO % 0.6 % (0.0-1.0); BUN 4 mg/dl (7-24); CHLORIDE 105 mmol/L (98-107); CHOLESTEROL 129 mg/dL (<200); CREATININE 0.79 mg/dL (0.55-1.02); EOS % 0.6 % (1.0-4.0); HDL CHOLESTEROL 27 mg/dl (40-60); HEMATOCRIT 42.2 % (37.0-47.0); LDL CHOLESTEROL 76 mg/dL (9-159); LYMPH # 1.8 10*3/uL (1.3-4.4); LYMPH % 39.1 % (27.0-41.0); MEAN CELL VOLUME 96.6 fl (81.0-99.0); MEAN CORPUSCULAR HGB CONC 33.2 g/dl (33.0-37.0); MEAN PLATELET VOLUME 10.7 fl (9.6-12.3); MONO # 0.3 10*3/uL (0.1-1.0); MONO % 6.6 % (3.0-9.0); NEUT # 2.5 10*3/uL (2.3-7.9); NEUT % 52.7 % (47.0-73.0); PHOSPHOROUS 2.9 mg/dL (2.5-4.9); PLATELET COUNT AUTOMATED 129 10*3/uL (130-400); POTASSIUM 3.6 mmol/L (3.5-5.1); RED BLOOD COUNT 4.37 10*6/uL (4.10-5.10); RED CELL DISTRI WIDTH 13.2 % (0-14.5); SGOT/AST 98 IU/L (3-35); SGPT/ALT 59 U/L (12-78); SODIUM 139 mmol/L (136-145); TOTAL PROTEIN 6.8 gm/dL (6.4-8.2); TRIGLYCERIDES 128 mg/dl (<150); VLDL CHOLESTEROL 26 mg/dL (6-40); WHITE BLOOD COUNT 4.7 10*3/uL (4.8-10.8)
[2017-09-22 06:09] LABS: ALKALINE PHOSPHATASE 93 U/L (45-117); FREE T4 1.17 ng/dl (0.76-1.46)
[2017-09-22 08:00] VITALS: BP 111/84
[2017-09-22 12:00] VITALS: BP 133/92
[2017-09-22] MEDS ORDERED: SEPTDS PO (13:16)
[2017-09-22] MEDS ORDERED: VITAMIN D31000 UNIT PO (13:16)
== END 2017-09-22 14:26 | disposition home or self-care (01) | DRG 394 ==
LOC: ED 08:49 → 4E 10:46 → EDHOLD 10:46 → 4E 10:58
PROVIDERS: Emergency Medicine; Internal Medicine
DX: K42.9 Umbilical hernia without obstruction or gangrene (principal); E44.0 Moderate protein-calorie malnutrition; E11.40 Type 2 diabetes mellitus with diabetic neuropathy, unspecified; D69.6 Thrombocytopenia, unspecified; E11.65 Type 2 diabetes mellitus with hyperglycemia; E11.610 Type 2 diabetes mellitus with diabetic neuropathic arthropathy; E87.1 Hypo-osmolality and hyponatremia; K56.7 Ileus, unspecified; N39.0 Urinary tract infection, site not specified; E66.01 Morbid (severe) obesity due to excess calories; I10 Essential (primary) hypertension; D72.819 Decreased white blood cell count, unspecified; F17.210 Nicotine dependence, cigarettes, uncomplicated; K21.9 Gastro-esophageal reflux disease without esophagitis; F41.1 Generalized anxiety disorder; J44.9 Chronic obstructive pulmonary disease, unspecified; Z71.6 Tobacco abuse counseling; Z90.49 Acquired absence of other specified parts of digestive tract; Z88.6 Allergy status to analgesic agent; Z88.1 Allergy status to other antibiotic agents; Z88.5 Allergy status to narcotic agent; Z91.048 Other nonmedicinal substance allergy status; Z87.01 Personal history of pneumonia (recurrent); Z90.710 Acquired absence of both cervix and uterus; Z82.49 Family history of ischemic heart disease and other diseases of the circulatory system; Z80.9 Family history of malignant neoplasm, unspecified; Z79.899 Other long term (current) drug therapy; Z79.84 Long term (current) use of oral hypoglycemic drugs; Z68.36 Body mass index [BMI] 36.0-36.9, adult

== ENCOUNTER 2018-02-08 17:11 | Emergency (ER) | payer MEDICARE, OTHER ==
[~2018-02-08] VITALS: Ht 162.5 cm; Wt 97.5 kg
[~2018-02-08 17:11] MED LIST changes: +SEPTDS PO; +VITAMIN D31000 UNIT PO
[2018-02-08 17:14] VITALS: BP 135/87
[2018-02-08 18:23] LABS: BASO # 0.1 10*3/uL (0.0-0.1); BASO % 0.6 % (0.0-1.0); EOS # 0.2 10*3/uL (0.0-0.4); EOS % 2.5 % (1.0-4.0); HEMATOCRIT 43.2 % (37.0-47.0); HEMOGLOBIN 15.1 g/dl (12.0-16.0); LYMPH % 33.6 % (27.0-41.0); MEAN CELL VOLUME 96.6 fl (81.0-99.0); MEAN CORPUSCULAR HGB 33.8 pg (27.0-31.0); MEAN PLATELET VOLUME 10.6 fl (9.6-12.3); MONO # 0.5 10*3/uL (0.1-1.0); MONO % 5.2 % (3.0-9.0); NEUT # 5.1 10*3/uL (2.3-7.9); NEUT % 57.8 % (47.0-73.0); PLATELET COUNT AUTOMATED 180 10*3/uL (130-400); RED BLOOD COUNT 4.47 10*6/uL (4.10-5.10); RED CELL DISTRI WIDTH 12.8 % (0-14.5); WHITE BLOOD COUNT 8.9 10*3/uL (4.8-10.8)
[2018-02-08 18:38] LABS: ALBUMIN 3.4 gm/dl (3.1-4.5); ALKALINE PHOSPHATASE 73 U/L (45-117); BUN 6 mg/dl (7-24); CHLORIDE 104 mmol/L (98-107); CREATININE 0.88 mg/dL (0.55-1.02); POTASSIUM 3.9 mmol/L (3.5-5.1); SGOT/AST 82 IU/L (3-35); SGPT/ALT 75 U/L (12-78); SODIUM 137 mmol/L (136-145)
[2018-02-08] MEDS ORDERED: CIPRO250 MG PO (20:09)
[2018-02-08] MEDS ORDERED: FLAGYL500 MG PO (20:09)
[2018-02-08] MEDS ORDERED: DIFLUCAN150 MG PO (20:09)
== END 2018-02-08 20:12 | disposition home or self-care (01) ==
LOC: ED 17:11
PROVIDERS: Nurse Practitioner Family
DX: K43.9 Ventral hernia without obstruction or gangrene (principal); F17.200 Nicotine dependence, unspecified, uncomplicated; Z88.6 Allergy status to analgesic agent; Z88.1 Allergy status to other antibiotic agents; Z79.899 Other long term (current) drug therapy; Z90.710 Acquired absence of both cervix and uterus; Z90.49 Acquired absence of other specified parts of digestive tract

== ENCOUNTER → 2018-05-05 | Outpatient (CLI) | payer MEDICARE, OTHER ==
[~2018-05-05] MED LIST changes: +BUPROPION HCL150 M1 PO; +CIPRO250 MG PO; +CITALOPRAM20 MG PO; +FLAGYL500 MG PO; +KEFLEX500 M1 PO
== END | disposition home or self-care (01) ==
LOC: WOUNDCARE 02:57
DX: T81.89XD Other complications of procedures, not elsewhere classified, subsequent encounter (principal); E11.40 Type 2 diabetes mellitus with diabetic neuropathy, unspecified; E11.51 Type 2 diabetes mellitus with diabetic peripheral angiopathy without gangrene; I10 Essential (primary) hypertension; J44.9 Chronic obstructive pulmonary disease, unspecified; G47.00 Insomnia, unspecified; F41.9 Anxiety disorder, unspecified; Z90.710 Acquired absence of both cervix and uterus; F17.200 Nicotine dependence, unspecified, uncomplicated; Y83.8 Other surgical procedures as the cause of abnormal reaction of the patient, or of later complication, without mention of misadventure at the time of the procedure

== ENCOUNTER 2018-06-29 21:53 | Inpatient (IN) | payer MEDICARE, OTHER ==
[~2018-06-29] VITALS: Ht 165.1 cm; Wt 95.1 kg
[~2018-06-29 21:53] MED LIST changes: -BUPROPION HCL150 M1 PO; -CITALOPRAM20 MG PO
[2018-06-29 21:56] VITALS: BP 99/68
[2018-06-29 23:49] LABS: BASO % 0.3 % (0.0-1.0); EOS # 0.2 10*3/uL (0.0-0.4); EOS % 1.7 % (1.0-4.0); HEMATOCRIT 39.6 % (37.0-47.0); HEMOGLOBIN 13.8 g/dl (12.0-16.0); LYMPH % 22.8 % (27.0-41.0); MEAN CELL VOLUME 97.5 fl (81.0-99.0); MEAN CORPUSCULAR HGB CONC 34.8 g/dl (33.0-37.0); MEAN PLATELET VOLUME 10.5 fl (9.6-12.3); MONO # 0.8 10*3/uL (0.1-1.0); NEUT % 68.7 % (47.0-73.0); PLATELET COUNT AUTOMATED 183 10*3/uL (130-400); RED BLOOD COUNT 4.06 10*6/uL (4.10-5.10); RED CELL DISTRI WIDTH 13.1 % (0-14.5); WHITE BLOOD COUNT 13.1 10*3/uL (4.8-10.8)
[2018-06-30 00:10] LABS: ALKALINE PHOSPHATASE 77 U/L (45-117); BUN 13 mg/dl (7-24); CHLORIDE 101 mmol/L (98-107); CREATININE 0.93 mg/dL (0.55-1.02); POTASSIUM 3.4 mmol/L (3.5-5.1); SGOT/AST 14 IU/L (3-35); SGPT/ALT 23 U/L (12-78); SODIUM 135 mmol/L (136-145); TOTAL PROTEIN 7.8 gm/dL (6.4-8.2)
[2018-06-30 00:30] VITALS: BP 102/64
--- NOTE | 2018-06-30 01:08 | NUR ---
Time: 99 A 53 year old FEMALE admitted to under services of CARLOS MURDCOK DO, Pt. arrived via wheel chair from ER. Chief complaint: ABDIMONAL WALL PAIN. EVON CHANG
[2018-06-30] MEDS ORDERED: CITALOPRAM20 MG PO (01:20)
[2018-06-30] MEDS ORDERED: BUPROPION HCL150 M1 PO (01:21)
--- NOTE | 2018-06-30 01:22 | NUR ---
MED REC COMPLETED WITH PATIENT ALERT AND ORIENTED TO PERSON PLACE AND TIME
--- NOTE | 2018-06-30 01:29 | NUR ---
DR SCHULZ AWARE OF MED REC BEING COMPLETE
[2018-06-30 01:30] VITALS: BP 92/70
--- NOTE | 2018-06-30 02:40 | NUR ---
MEDICATED WITH MORPHINE FOR C/O ABD PAIN. WILL MONITOR
--- NOTE | 2018-06-30 03:21 | NUR ---
KRISTINA JACK [id number] Please refer to the physician's history and physical for past medical history, comorbid conditions, and allergies. Diagnosis: ABD WALL CELLULITIS, FAILURE OF OUTPATIENT TREATM Tony Score: 21,LOW OR NO RISK WOUND DESCRIPTIONS: Location of the wound: middle aspect of lower abdomen Thickness: Partial Size: 0.6cm x 0.8cm x 0.1cm Tunneling: none Undermining: none Sinus Tract: none Presence of Exudate: Serosanguineous Amount: Light Color: Red Odor: None Periwound Skin Appearance: Erythema 29.0cm x 13.0cm warmth, firmness Wound edges: approximated Pain (associated with wound): tender to touch How does patient state this happened? pt stated she followed in the wound care center previously for hernia wound and she stated that Dr. Caruso referred her to [place] but is unable to get in until August. Patient stated she was just in the ER because she was having trouble moving her bowels and voiding. Surface the patient is resting on: Isoflex SKIN PREVENTION RECOMMENDATION: 1. Pressure redistribution support surface as appropriate 2. Elevate heels 3. Remove boots/TEDS every shift and reapply 4. Head of bed 30 degrees as tolerated 5. Assess nutrition and hydration 6. Manage moisture 7. Avoid the use of containment devices while in bed 8. Use absorptive products on surfaces limit layers of linens on bed 9. Turn and reposition every 1-2 hours in bed and every 1 hour in chair as tolerated 10. Weight shifts every 15 minutes while up in chair 11. Offloading with pillows or device to keep heels elevated off bed 12. Monitor skin at least every shift 13. Inspect under medical devices twice a day WOUND TREATMENT RECOMMENDATIONS: Cleanse middle aspect of lower abdomen with nss and apply abd pad daily and prn for soiling. Patient wants to follow up in the wound care center upon discharge.
--- NOTE | 2018-06-30 04:10 | NUR ---
PATIENT RESTING IN BED WITH NO S/S OF DISTRESS. MEDICATION SEEMS EFFECTIVE
[2018-06-30 06:28] LABS: BASO % 0.3 % (0.0-1.0); EOS # 0.2 10*3/uL (0.0-0.4); EOS % 1.6 % (1.0-4.0); HEMATOCRIT 39.5 % (37.0-47.0); HEMOGLOBIN 13.4 g/dl (12.0-16.0); LYMPH # 1.1 10*3/uL (1.3-4.4); LYMPH % 10.7 % (27.0-41.0); MEAN CELL VOLUME 100.5 fl (81.0-99.0); MEAN CORPUSCULAR HGB 34.1 pg (27.0-31.0); MEAN CORPUSCULAR HGB CONC 33.9 g/dl (33.0-37.0); MEAN PLATELET VOLUME 10.7 fl (9.6-12.3); MONO # 0.8 10*3/uL (0.1-1.0); MONO % 7.5 % (3.0-9.0); NEUT # 8.1 10*3/uL (2.3-7.9); NEUT % 79.1 % (47.0-73.0); PLATELET COUNT AUTOMATED 149 10*3/uL (130-400); RED BLOOD COUNT 3.93 10*6/uL (4.10-5.10); RED CELL DISTRI WIDTH 13.2 % (0-14.5); WHITE BLOOD COUNT 10.2 10*3/uL (4.8-10.8)
--- NOTE | 2018-06-30 06:42 | NUR ---
ATTEMPTED TO CALL DR ERICKSON REGARDING CONSULT. NO ANSWER AT THIS TIME AND VOICEMAIL IS FULL.
[2018-06-30 06:45] LABS: BUN 12 mg/dl (7-24); CHLORIDE 104 mmol/L (98-107); CREATININE 0.98 mg/dL (0.55-1.02); PHOSPHOROUS 2.8 mg/dL (2.5-4.9); POTASSIUM 3.4 mmol/L (3.5-5.1); SODIUM 138 mmol/L (136-145)
--- NOTE | 2018-06-30 06:50 | NUR ---
DR ERICKSON AWARE OF CONSULT. NO NEW ORDERS AT THIS TIME
[2018-06-30 08:00] VITALS: BP 128/66
--- NOTE | 2018-06-30 08:00 | NUR ---
Dr. Ammy Stoddard notified of wound care recommendations.
--- NOTE | 2018-06-30 08:04 | NUR ---
PATIENT MEDICATED WITH MORPHINE AT THIS TIME PER ORDER FOR COMPLAINTS OF PAIN 10/10 IN ABSCESS AREA. WILL MONITOR.
--- NOTE | 2018-06-30 08:30 | NUR ---
PATIENT STATES THAT MORPHINE HAS BEEN EFFECTIVE. NO FURTHER COMPLAINTS
--- NOTE | 2018-06-30 09:00 | NUR ---
[employer]ical Sales Representatives in to talk to patient. Patient states lives at home with alone. There are few steps in the home. Physician: areli calle Pharmacy: [facility] Home health services: none Patient's level of ADLs: INDEPENDENT Patient has working utilities: all working DME: nebulizer Follow-up physician's appointment after d/c: will be made by hospitalist nurse director upon discharge Does patient want to access PORTAL?: no Discharge plan discussed with patient, patient lives at home alone. she states she is independent in adls and ambulation, patient states she will be going home when able and denies any home needs. HUDSON CHRISTINE
--- NOTE | 2018-06-30 11:21 | NUR ---
PHYSICAL THERAPY PAtient requests no PT this date due to pain. Thank you for this referral. Laurel Somers,PT
[2018-06-30 12:00] VITALS: BP 120/74
[2018-06-30 16:00] VITALS: BP 92/71
--- NOTE | 2018-06-30 16:18 | NUR ---
PT MEDICATED WITH MORPHINE AT THIS TIME FOR COMPLAINTS OF 10/10 PAIN IN ABD. WILL MONITOR
--- NOTE | 2018-06-30 17:00 | NUR ---
PER PATIENT, MORPHINE HAS BEEN EFFECTIVE. NO FURTHER COMPLAINTS.
[2018-06-30 20:00] VITALS: BP 98/67
--- NOTE | 2018-06-30 20:40 | NUR ---
AWAKE/ALERT FOR SHIFT ASSESSMENT. RESPIRATIONS EASY/REG ON RA. IV ABX INFUSING ODERED. BED IN LOW POSITION, WHEELS LOCKED, CALL LIGHT IN REACH. WILL MONITOR.
--- NOTE | 2018-06-30 22:23 | NUR ---
PATIENT MEDICATED WITH PRN MORPHINE ORDERED FOR C/O ABDOMINAL PAIN RATED 10/10
--- NOTE | 2018-06-30 23:40 | NUR ---
EARLIER MORPHINE APPEARS EFFECTIVE. PATIENT SLEEPING. NO S/S OF DISTRESS NOTED. CALL LIGHT IN REACH.
[2018-07-01] VITALS (7 sets, daily range): BP systolic 92–116; BP diastolic 50–80
--- NOTE | 2018-07-01 04:37 | NUR ---
NOTIFIED DR AGARWAL OF PATIENTS MANUAL BP 98/60 AND WANTING NEXT DOSE OF MORPHINE FOR AB PAIN 10/20. STATED TO HOLD THE MORPHINE RIGHT NOW AND HE WILL TAKE A LOOK AT HER CHART.
--- NOTE | 2018-07-01 05:01 | NUR ---
PATIENT MEDICATED WITH 1X DOSE TORADOL ORDERED FOR C/O ABDOMINAL PAIN RATED 8/10
[2018-07-01 06:10] LABS: BUN 7 mg/dl (7-24); CHLORIDE 106 mmol/L (98-107); CREATININE 0.82 mg/dL (0.55-1.02); POTASSIUM 3.8 mmol/L (3.5-5.1); SODIUM 138 mmol/L (136-145)
[2018-07-01 06:25] LABS: BASO # 0.1 10*3/uL (0.0-0.1); BASO % 0.4 % (0.0-1.0); EOS # 0.1 10*3/uL (0.0-0.4); EOS % 0.9 % (1.0-4.0); HEMATOCRIT 35.1 % (37.0-47.0); HEMOGLOBIN 11.9 g/dl (12.0-16.0); LYMPH # 2.8 10*3/uL (1.3-4.4); LYMPH % 19.9 % (27.0-41.0); MEAN CELL VOLUME 101.4 fl (81.0-99.0); MEAN CORPUSCULAR HGB 34.4 pg (27.0-31.0); MEAN CORPUSCULAR HGB CONC 33.9 g/dl (33.0-37.0); MEAN PLATELET VOLUME 10.8 fl (9.6-12.3); MONO # 1.1 10*3/uL (0.1-1.0); MONO % 7.7 % (3.0-9.0); NEUT # 9.8 10*3/uL (2.3-7.9); NEUT % 70.5 % (47.0-73.0); PLATELET COUNT AUTOMATED 168 10*3/uL (130-400); RED BLOOD COUNT 3.46 10*6/uL (4.10-5.10); RED CELL DISTRI WIDTH 13.2 % (0-14.5); WHITE BLOOD COUNT 13.9 10*3/uL (4.8-10.8)
--- NOTE | 2018-07-01 06:30 | NUR ---
PATIENT STATES EARLIER TORADOL WORKED BETTER THAN THE MORPHINE.
--- NOTE | 2018-07-01 09:00 | NUR ---
case management visits with patient, patient states she will be going home when able and denies any home needs
--- NOTE | 2018-07-01 09:32 | NUR ---
PATIENT RECEIVED TORADOL FOR PAIN IN THE LOWER ABD RATED 7/10.
--- NOTE | 2018-07-01 10:40 | NUR ---
PHYSICAL THERAPY PAtient reports she is 100 % (I) with all mobility and requires no PT services. D/c PT at this time. Thank you for this referral. Laurel Somers,PT
--- NOTE | 2018-07-01 11:18 | NUR ---
Occupational Therapy evaluation offered but patient reports that she is in too much pain. She also denies need for any OT as she is independent in all ADLs,mobility and transfers. Discharge OT referral per patient's request. Thank you. Phoebe Kilgore OTR/Kvng
--- NOTE | 2018-07-01 12:36 | NUR ---
Nutritional Support Services Note: Pt with dx of poor DM control, wound to lower abdomen. Pt refuses diet instruction and diet copy. States she doesn't follow a diet and will not follow it at home. Explained rationale of diet to pt she continues to refuse copy and instruction. Encouraged follow up if needed. Kya Hare Rdn Ld
--- NOTE | 2018-07-01 19:30 | NUR ---
CHANGED DRESSING TO PATIENTS ABDOMIN AT THIS TIME. PLEASANT AND COOPERATIVE WITH CARE. RESPIRATIONS EASY/REG ON RA. BED IN LOW POSITION. WHEELS LOCKED, CALL LIGHT IN REACH
--- NOTE | 2018-07-01 21:45 | NUR ---
PATIENT MEDICATED WITH PRN TORADOL ORDERED FOR C/O ABDOMINAL PAIN RATED 10/10, WORSENED WITH MOVEMENT. DRESSING CHANGED AT THIS TIME.
[2018-07-02] VITALS: BP 121/62
--- NOTE | 2018-07-02 06:01 | NUR ---
Spoke with Dr. Pimentel regarding new skin impairments in the lower abdomen and the description of the lower abdomen he stated to notify Dr. Caruso regarding new skin impairments and patient's condition. This nurse also informed him that she was crying out in pain.
--- NOTE | 2018-07-02 06:10 | NUR ---
Spoke with Dr. Caruso regarding new skin impariments noted to lower abdomen and the increase amount of pain. He stated he will put something in for pain and he will come in early to see her.
--- NOTE | 2018-07-02 06:13 | NUR ---
JACKKRISTINA Reagan [id number] Please refer to the physician's history and physical for past medical history, comorbid conditions, and allergies. Diagnosis: ABD WALL CELLULITIS, FAILURE OF OUTPATIENT TREATM Tony Score: 21,LOW OR NO RISK WOUND DESCRIPTIONS: (new skin impairments) Location of the wound: middle aspect of lower abdomen right side Thickness: Full Size: 2.0cm x 1.5cm x 0.1cm Tunneling: none Undermining: none Sinus Tract: none Presence of Exudate: Serosanguineous Amount: Moderate Color: Red, yellow, purple Odor: None Periwound Skin Appearance: Erythema 37.0cm x 19.0cm warmth, firmness Wound edges: approximated Pain (associated with wound): very tender to touch crying out in pain Location of the wound: middle aspect of lower abdomen (middle wound) Thickness: Full Size: 1.0cm x 1.0cm x 0.1cm Tunneling: none Undermining: none Sinus Tract: none Presence of Exudate: Serosanguineous Amount: Moderate Color: Red, yellow, purple Odor: None Periwound Skin Appearance: Erythema 37.0cm x 19.0cm warmth, firmness Wound edges: approximated Pain (associated with wound): very tender to touch crying out in pain Location of the wound: middle aspect of lower abdomen left side Thickness: Full Size: 1.5cm x 1.7cm x 0.1cm Tunneling: none Undermining: none Sinus Tract: none Presence of Exudate: Serosanguineous Amount: Moderate Color: Red, yellow, purple Odor: None Periwound Skin Appearance: Erythema 37.0cm x 19.0cm warmth, firmness Wound edges: approximated Pain (associated with wound): very tender to touch crying out in pain Surface the patient is resting on: Isoflex SKIN PREVENTION RECOMMENDATION: 1. Pressure redistribution support surface as appropriate 2. Elevate heels 3. Remove boots/TEDS every shift and reapply 4. Head of bed 30 degrees as tolerated 5. Assess nutrition and hydration 6. Manage moisture 7. Avoid the use of containment devices while in bed 8. Use absorptive products on surfaces limit layers of linens on bed 9. Turn and reposition every 1-2 hours in bed and every 1 hour in chair as tolerated 10. Weight shifts every 15 minutes while up in chair 11. Offloading with pillows or device to keep heels elevated off bed 12. Monitor skin at least every shift 13. Inspect under medical devices twice a day WOUND TREATMENT RECOMMENDATIONS: imaging studies due to new skin impairments. possible debridement of lower abdomen. Cleanse abdomen with nss and apply sureprep around the wound maxorb to wounds then cover with abd pad daily and prn for soiling.
[2018-07-02 07:06] LABS: BASO % 0.4 % (0.0-1.0); EOS # 0.3 10*3/uL (0.0-0.4); EOS % 2.6 % (1.0-4.0); HEMATOCRIT 34.3 % (37.0-47.0); HEMOGLOBIN 11.7 g/dl (12.0-16.0); LYMPH # 2.8 10*3/uL (1.3-4.4); LYMPH % 27.1 % (27.0-41.0); MEAN CELL VOLUME 99.4 fl (81.0-99.0); MEAN CORPUSCULAR HGB 33.9 pg (27.0-31.0); MEAN CORPUSCULAR HGB CONC 34.1 g/dl (33.0-37.0); MEAN PLATELET VOLUME 10.2 fl (9.6-12.3); MONO # 0.6 10*3/uL (0.1-1.0); MONO % 6.2 % (3.0-9.0); NEUT # 6.4 10*3/uL (2.3-7.9); PLATELET COUNT AUTOMATED 162 10*3/uL (130-400); RED BLOOD COUNT 3.45 10*6/uL (4.10-5.10); WHITE BLOOD COUNT 10.1 10*3/uL (4.8-10.8)
[2018-07-02 07:24] LABS: CHLORIDE 110 mmol/L (98-107); POTASSIUM 3.8 mmol/L (3.5-5.1); SODIUM 140 mmol/L (136-145)
[2018-07-02 07:29] LABS: BUN 8 mg/dl (7-24); CREATININE 0.78 mg/dL (0.55-1.02)
[2018-07-02 08:00] VITALS: BP 110/71
--- NOTE | 2018-07-02 08:02 | NUR ---
INFORMED THAT WOUND CULTURE FINAL RESULTS W/ MRSA
--- NOTE | 2018-07-02 08:38 | NUR ---
Appointment card given to patient for outpatient wound care appointment on 07/06/18 @ 10:30am
--- NOTE | 2018-07-02 09:54 | NUR ---
PATIENT MEDICATED WITH TORADOL FOR ABD PAIN 01/20. WILL MONITOR.
--- NOTE | 2018-07-02 10:47 | NUR ---
TORADOL EFFECTIVE FOR PAIN
--- NOTE | 2018-07-02 11:40 | NUR ---
PT CONTNUES TO DENY HOME NEEDS AT THIS TIME. STATES SHE WILL WAIT TO SEE IF SHE HAS TO HAVE ANY SURGERY BEFORE DECIDING.
[2018-07-02 12:00] VITALS: BP 107/74
--- NOTE | 2018-07-02 13:37 | NUR ---
PATIENT MEDICATED WITH MORPHINE FOR 10/10 ABDOMINAL PAIN. WILL MONITOR
--- NOTE | 2018-07-02 14:00 | NUR ---
IV started left hand with #22 angiocath after 0 attempts. The IV site was prepped with Chloraprep. Heparin lock attached. Sterile dressing applied. Patient tolerated precedure well. Procedure performed according to [facility] policy & procedure. DURGA PORTILLO
--- NOTE | 2018-07-02 14:00 | NUR ---
Hep Lock discontinued, GEOVANNA. Site symptomatic, LEAKING AT SITE. Pressure applied. Sterile dressing applied. DURGA PORTILLO
--- NOTE | 2018-07-02 14:37 | NUR ---
PRN MORPHINE EFFECTIVE FOR PAIN.
[2018-07-02 16:00] VITALS: BP 113/68
[2018-07-02 20:00] VITALS: BP 107/77
[2018-07-03] VITALS: BP 108/61
--- NOTE | 2018-07-03 02:03 | NUR ---
PATIENT MEDICATED WITH PRN MORPHINE ORDERED FOR C/O LOWER ABDOMINAL PAIN RATED 10/10
[2018-07-03 06:29] LABS: BASO % 0.4 % (0.0-1.0); EOS # 0.4 10*3/uL (0.0-0.4); EOS % 4.8 % (1.0-4.0); HEMATOCRIT 34.9 % (37.0-47.0); HEMOGLOBIN 11.7 g/dl (12.0-16.0); LYMPH # 2.6 10*3/uL (1.3-4.4); LYMPH % 34.9 % (27.0-41.0); MEAN CELL VOLUME 101.5 fl (81.0-99.0); MEAN CORPUSCULAR HGB CONC 33.5 g/dl (33.0-37.0); MEAN PLATELET VOLUME 10.2 fl (9.6-12.3); MONO # 0.5 10*3/uL (0.1-1.0); MONO % 6.9 % (3.0-9.0); NEUT % 52.3 % (47.0-73.0); PLATELET COUNT AUTOMATED 201 10*3/uL (130-400); RED BLOOD COUNT 3.44 10*6/uL (4.10-5.10); RED CELL DISTRI WIDTH 13.1 % (0-14.5); WHITE BLOOD COUNT 7.6 10*3/uL (4.8-10.8)
[2018-07-03 06:51] LABS: BUN 6 mg/dl (7-24); CHLORIDE 109 mmol/L (98-107); CREATININE 0.78 mg/dL (0.55-1.02); SODIUM 141 mmol/L (136-145)
[2018-07-03 08:00] VITALS: BP 114/73
--- NOTE | 2018-07-03 08:04 | NUR ---
PT MEDICATED WITH IV MORPHINE PER PRN ORDER FOR C/O LOWER ABD PAIN. RATES PAIN /. WILL MONITOR EFFECTIVENESS. NEW DRESSING APPLIED TO LOWER ABD PER ORDER. PT TOLERATED WELL. WILL CONTINUE TO MONITOR. VSS. CALL LIGHT WITHIN REACH.
--- NOTE | 2018-07-03 09:00 | NUR ---
IV MORPHINE EFFECTIVE PER PT. WILL CONTINUE TO MONITOR.
[2018-07-03 12:00] VITALS: BP 111/74
--- NOTE | 2018-07-03 14:12 | NUR ---
IN TO SEE PATIENT AND OKAY TO DISCHARGE FROM HIS STANDPOINT.
[2018-07-03] MEDS ORDERED: ZYVOX600 MG PO (15:21)
[2018-07-03] MEDS ORDERED: DOXYCYCLINE100 M3 PO (15:24)
--- NOTE | 2018-07-03 15:32 | NUR ---
PATIENT'S FAMILY HERE TO PICK PATIENT UP. PATIENT REFUSING DRESSING CHANGE AT THIS TIME. PT REFUSING DISCHARGE PHOTO.
== END 2018-07-03 15:32 | disposition home or self-care (01) | DRG 872 ==
LOC: ED 21:53 → EDHOLD 06-30 00:29 → 4E 06-30 00:29
PROVIDERS: Internal Medicine; Nurse Practitioner Family; Student in an Organized Health Care Education/Training Program; ADMIT Internal Medicine
DX: A41.9 Sepsis, unspecified organism (principal); L03.311 Cellulitis of abdominal wall; E87.1 Hypo-osmolality and hyponatremia; E44.0 Moderate protein-calorie malnutrition; L02.211 Cutaneous abscess of abdominal wall; E87.6 Hypokalemia; I10 Essential (primary) hypertension; K21.9 Gastro-esophageal reflux disease without esophagitis; F41.1 Generalized anxiety disorder; E11.40 Type 2 diabetes mellitus with diabetic neuropathy, unspecified; J44.9 Chronic obstructive pulmonary disease, unspecified; E11.65 Type 2 diabetes mellitus with hyperglycemia; F17.210 Nicotine dependence, cigarettes, uncomplicated; E66.01 Morbid (severe) obesity due to excess calories; E55.9 Vitamin D deficiency, unspecified; K43.9 Ventral hernia without obstruction or gangrene; Z88.1 Allergy status to other antibiotic agents; Z88.6 Allergy status to analgesic agent; Z91.048 Other nonmedicinal substance allergy status; Z90.49 Acquired absence of other specified parts of digestive tract; Z90.710 Acquired absence of both cervix and uterus; Z98.891 History of uterine scar from previous surgery; Z82.49 Family history of ischemic heart disease and other diseases of the circulatory system; Z80.9 Family history of malignant neoplasm, unspecified; Z79.899 Other long term (current) drug therapy; Z68.34 Body mass index [BMI] 34.0-34.9, adult

== ENCOUNTER → 2018-10-01 | Outpatient (CLI) | payer MEDICARE, OTHER ==
[~2018-10-01] MED LIST changes: +BUPROPION HCL150 M1 PO; +CITALOPRAM20 MG PO; +ZYVOX600 MG PO
== END | disposition home or self-care (01) ==
LOC: CT 09-30 08:00
DX: K43.9 Ventral hernia without obstruction or gangrene (principal); T88.9XXS Complication of surgical and medical care, unspecified, sequela; R11.2 Nausea with vomiting, unspecified; Z90.49 Acquired absence of other specified parts of digestive tract

== ENCOUNTER 2018-12-07 13:14 | Emergency (ER) | payer MEDICARE, OTHER ==
[~2018-12-07] VITALS: Ht 165.1 cm; Wt 95.7 kg
[2018-12-07 13:16] VITALS: BP 144/98
== END 2018-12-07 15:41 | disposition home or self-care (01) ==
LOC: ED 13:14
DX: S63.502A Unspecified sprain of left wrist, initial encounter (principal); S60.042A Contusion of left ring finger without damage to nail, initial encounter; F17.200 Nicotine dependence, unspecified, uncomplicated; Z88.6 Allergy status to analgesic agent; Z88.1 Allergy status to other antibiotic agents; Z79.899 Other long term (current) drug therapy; W01.0XXA Fall on same level from slipping, tripping and stumbling without subsequent striking against object, initial encounter; Y93.89 Activity, other specified; Y92.89 Other specified places as the place of occurrence of the external cause; Y99.8 Other external cause status

== ENCOUNTER 2019-03-09 00:45 | Emergency (ER) | payer MEDICARE, OTHER ==
[~2019-03-09] VITALS: Wt 94.8 kg
[2019-03-09 00:45] VITALS: BP 103/49
[2019-03-09] MEDS ORDERED: FARXIGA5 M1 PO (00:58)
[2019-03-09 01:38] LABS: BASO # 0.1 10*3/uL (0.0-0.1); BASO % 0.5 % (0.0-1.0); EOS # 0.9 10*3/uL (0.0-0.4); EOS % 6.8 % (1.0-4.0); HEMATOCRIT 34.5 % (37.0-47.0); HEMOGLOBIN 11.6 g/dl (12.0-16.0); LYMPH # 4.4 10*3/uL (1.3-4.4); MEAN CELL VOLUME 100.3 fl (81.0-99.0); MEAN CORPUSCULAR HGB 33.7 pg (27.0-31.0); MEAN CORPUSCULAR HGB CONC 33.6 g/dl (33.0-37.0); MEAN PLATELET VOLUME 9.7 fl (9.6-12.3); MONO # 0.9 10*3/uL (0.1-1.0); NEUT # 6.8 10*3/uL (2.3-7.9); NEUT % 51.6 % (47.0-73.0); PLATELET COUNT AUTOMATED 369 10*3/uL (130-400); RED BLOOD COUNT 3.44 10*6/uL (4.10-5.10); RED CELL DISTRI WIDTH 14.2 % (0-14.5); WHITE BLOOD COUNT 13.2 10*3/uL (4.8-10.8)
[2019-03-09 01:56] LABS: ALBUMIN 2.8 gm/dl (3.1-4.5); ALKALINE PHOSPHATASE 64 U/L (45-117); BUN 4 mg/dl (7-24); CHLORIDE 105 mmol/L (98-107); CREATININE 0.84 mg/dL (0.55-1.02); POTASSIUM 2.9 mmol/L (3.5-5.1); SGOT/AST 23 IU/L (3-35); SGPT/ALT 25 U/L (12-78); SODIUM 139 mmol/L (136-145); TOTAL PROTEIN 6.6 gm/dL (6.4-8.2)
[2019-03-09] MEDS ORDERED: CEPHALEXIN500 M1 PO (03:53)
== END 2019-03-09 04:08 | disposition home or self-care (01) ==
LOC: ED 00:45
PROVIDERS: Emergency Medicine
DX: T81.31XA Disruption of external operation (surgical) wound, not elsewhere classified, initial encounter (principal); L76.34 Postprocedural seroma of skin and subcutaneous tissue following other procedure; E11.42 Type 2 diabetes mellitus with diabetic polyneuropathy; J44.9 Chronic obstructive pulmonary disease, unspecified; K21.9 Gastro-esophageal reflux disease without esophagitis; I10 Essential (primary) hypertension; E66.01 Morbid (severe) obesity due to excess calories; M19.90 Unspecified osteoarthritis, unspecified site; F17.200 Nicotine dependence, unspecified, uncomplicated; Z79.899 Other long term (current) drug therapy; Z88.6 Allergy status to analgesic agent; Z88.1 Allergy status to other antibiotic agents; Y83.8 Other surgical procedures as the cause of abnormal reaction of the patient, or of later complication, without mention of misadventure at the time of the procedure; Y92.89 Other specified places as the place of occurrence of the external cause

== ENCOUNTER 2020-01-24 02:24 | Emergency (ER) | payer MEDICARE, OTHER ==
[~2020-01-24] VITALS: Ht 162.5 cm; Wt 95.7 kg
[~2020-01-24 02:24] MED LIST changes: +FARXIGA5 M1 PO
[2020-01-24] MEDS ORDERED: VIBRAMYCIN100 MG PO (03:25)
[2020-01-24 03:34] VITALS: BP 131/81
[2020-01-24] MEDS ORDERED: SEPTDS PO (11:06)
[2020-01-24] MEDS ORDERED: POLYSPORIN OINT15 GM T (11:06)
== END 2020-01-24 03:35 | disposition home or self-care (01) ==
LOC: ED 02:24
DX: L73.9 Follicular disorder, unspecified (principal); L02.01 Cutaneous abscess of face; J44.9 Chronic obstructive pulmonary disease, unspecified; K21.9 Gastro-esophageal reflux disease without esophagitis; I10 Essential (primary) hypertension; E11.9 Type 2 diabetes mellitus without complications; F41.9 Anxiety disorder, unspecified; M19.90 Unspecified osteoarthritis, unspecified site; Z88.5 Allergy status to narcotic agent; Z88.8 Allergy status to other drugs, medicaments and biological substances; Z79.899 Other long term (current) drug therapy

== ENCOUNTER 2020-01-24 08:12 | Emergency (ER) | payer MEDICARE, OTHER ==
[~2020-01-24] VITALS: Ht 165.1 cm; Wt 95.7 kg
[2020-01-24 08:18] VITALS: BP 132/80
[2020-01-24 09:32] LABS: BASO # 0.1 10*3/uL (0.0-0.1); BASO % 0.4 % (0.0-1.0); EOS # 0.1 10*3/uL (0.0-0.4); EOS % 0.5 % (1.0-4.0); HEMATOCRIT 46.6 % (37.0-47.0); LYMPH # 2.2 10*3/uL (1.3-4.4); LYMPH % 17.1 % (27.0-41.0); MEAN CELL VOLUME 96.9 fl (81.0-99.0); MEAN CORPUSCULAR HGB 32.4 pg (27.0-31.0); MEAN CORPUSCULAR HGB CONC 33.5 g/dl (33.0-37.0); MEAN PLATELET VOLUME 10.3 fl (9.6-12.3); MONO # 0.9 10*3/uL (0.1-1.0); MONO % 6.6 % (3.0-9.0); NEUT # 9.7 10*3/uL (2.3-7.9); NEUT % 75.1 % (47.0-73.0); PLATELET COUNT AUTOMATED 166 10*3/uL (130-400); RED BLOOD COUNT 4.81 10*6/uL (4.10-5.10); RED CELL DISTRI WIDTH 12.9 % (0-14.5)
[2020-01-24 09:49] LABS: ALBUMIN 3.6 gm/dl (3.1-4.5); ALKALINE PHOSPHATASE 80 U/L (45-117); BUN 10 mg/dl (7-24); CHLORIDE 106 mmol/L (98-107); CREATININE 0.74 mg/dL (0.55-1.02); SGOT/AST 38 IU/L (3-35); SGPT/ALT 43 U/L (12-78); SODIUM 137 mmol/L (136-145); TOTAL PROTEIN 8.2 gm/dL (6.4-8.2)
[2020-01-24 09:54] LABS: TROPONIN I < 0.015 ng/ml (<0.045)
[2020-01-24] MEDS ORDERED: SEPTDS PO (11:06)
[2020-01-24] MEDS ORDERED: POLYSPORIN OINT15 GM T (11:06)
== END 2020-01-24 11:11 | disposition home or self-care (01) ==
LOC: ED 08:12
PROVIDERS: Emergency Medicine
DX: L08.89 Other specified local infections of the skin and subcutaneous tissue (principal); J44.9 Chronic obstructive pulmonary disease, unspecified; K21.9 Gastro-esophageal reflux disease without esophagitis; I10 Essential (primary) hypertension; E11.9 Type 2 diabetes mellitus without complications; F41.9 Anxiety disorder, unspecified; F32.9 Major depressive disorder, single episode, unspecified; F17.200 Nicotine dependence, unspecified, uncomplicated; Z88.8 Allergy status to other drugs, medicaments and biological substances; Z79.899 Other long term (current) drug therapy

== ENCOUNTER 2020-03-11 17:41 | Emergency (ER) | payer MEDICARE, OTHER ==
[~2020-03-11] VITALS: Ht 162.5 cm; Wt 95.7 kg
[~2020-03-11 17:41] MED LIST changes: +POLYSPORIN OINT15 GM T
[2020-03-11 17:45] VITALS: BP 151/92
[2020-03-11] MEDS ORDERED: IBU800 M1 PO (20:05)
== END 2020-03-11 20:23 | disposition home or self-care (01) ==
LOC: ED 17:41
DX: S80.02XA Contusion of left knee, initial encounter (principal); S80.01XA Contusion of right knee, initial encounter; F41.9 Anxiety disorder, unspecified; F32.9 Major depressive disorder, single episode, unspecified; M19.90 Unspecified osteoarthritis, unspecified site; J44.9 Chronic obstructive pulmonary disease, unspecified; E11.9 Type 2 diabetes mellitus without complications; K21.9 Gastro-esophageal reflux disease without esophagitis; I10 Essential (primary) hypertension; W17.89XA Other fall from one level to another, initial encounter; Y93.89 Activity, other specified; Y92.098 Other place in other non-institutional residence as the place of occurrence of the external cause; Y99.8 Other external cause status

== ENCOUNTER → 2020-04-02 | Outpatient (CLI) | payer MEDICARE ==
[~2020-04-02] MED LIST changes: +IBU800 M1 PO
== END | disposition home or self-care (01) ==
LOC: MRI 03-30 13:00
PROVIDERS: ATTEND Preventive Medicine Occupational Medicine
DX: S83.221A Peripheral tear of medial meniscus, current injury, right knee, initial encounter (principal); S82.121A Displaced fracture of lateral condyle of right tibia, initial encounter for closed fracture; S82.151A Displaced fracture of right tibial tuberosity, initial encounter for closed fracture; S82.111A Displaced fracture of right tibial spine, initial encounter for closed fracture; M25.461 Effusion, right knee; M22.41 Chondromalacia patellae, right knee; W19.XXXA Unspecified fall, initial encounter; Y93.89 Activity, other specified; Y92.89 Other specified places as the place of occurrence of the external cause; Y99.8 Other external cause status

== ENCOUNTER 2020-10-27 12:32 | Emergency (ER) | payer MEDICARE, OTHER ==
[~2020-10-27] VITALS: Ht 165.1 cm; Wt 95.3 kg
[2020-10-27 12:55] VITALS: BP 129/65
[2020-10-27] MEDS ORDERED: CLOTRIMAZOLE T (13:15)
== END 2020-10-27 13:22 | disposition home or self-care (01) ==
LOC: ED 12:32
DX: B35.9 Dermatophytosis, unspecified (principal); L73.9 Follicular disorder, unspecified; F17.200 Nicotine dependence, unspecified, uncomplicated; Z91.048 Other nonmedicinal substance allergy status; Z88.6 Allergy status to analgesic agent; Z88.5 Allergy status to narcotic agent; Z79.2 Long term (current) use of antibiotics; Z79.899 Other long term (current) drug therapy; Z90.711 Acquired absence of uterus with remaining cervical stump; Z98.890 Other specified postprocedural states; Z90.49 Acquired absence of other specified parts of digestive tract; Z90.89 Acquired absence of other organs

== ENCOUNTER → 2020-12-31 | Outpatient (CLI) | payer MEDICARE, OTHER ==
[~2020-12-31] MED LIST changes: +CLOTRIMAZOLE T
== END | disposition home or self-care (01) ==
LOC: COVID19 19:07
PROVIDERS: ATTEND Internal Medicine
DX: U07.1 COVID-19 (principal)

== ENCOUNTER 2021-03-20 17:43 | Emergency (ER) | payer MEDICARE, OTHER ==
[~2021-03-20] VITALS: Ht 165.1 cm; Wt 86.2 kg
[2021-03-20 18:01] VITALS: BP 129/72
[2021-03-20 18:24] LABS: BASO % 0.7 % (0.0-1.0); EOS # 0.1 10*3/uL (0.0-0.4); EOS % 1.6 % (1.0-4.0); HEMATOCRIT 43.3 % (37.0-47.0); LYMPH # 1.5 10*3/uL (1.3-4.4); LYMPH % 26.5 % (27.0-41.0); MEAN CELL VOLUME 97.5 fl (81.0-99.0); MEAN CORPUSCULAR HGB 33.6 pg (27.0-31.0); MEAN CORPUSCULAR HGB CONC 34.4 g/dl (33.0-37.0); MEAN PLATELET VOLUME 10.4 fl (9.6-12.3); MONO # 0.5 10*3/uL (0.1-1.0); MONO % 8.6 % (3.0-9.0); NEUT # 3.4 10*3/uL (2.3-7.9); NEUT % 62.2 % (47.0-73.0); PLATELET COUNT AUTOMATED 134 10*3/uL (130-400); RED BLOOD COUNT 4.44 10*6/uL (4.10-5.10); RED CELL DISTRI WIDTH 13.2 % (0-14.5); WHITE BLOOD COUNT 5.5 10*3/uL (4.8-10.8)
[2021-03-20 18:39] LABS: ACT PARTIAL THROMBO TIME 27.6 SECONDS (20.0-32.1)
[2021-03-20 18:43] LABS: ALBUMIN 3.2 gm/dl (3.1-4.5); ALKALINE PHOSPHATASE 80 U/L (45-117); BUN 10 mg/dl (7-24); CHLORIDE 103 mmol/L (98-107); CREATININE 0.91 mg/dL (0.55-1.02); POTASSIUM 3.6 mmol/L (3.5-5.1); SGOT/AST 114 IU/L (3-35); SGPT/ALT 87 U/L (12-78); SODIUM 137 mmol/L (136-145); TOTAL PROTEIN 7.7 gm/dL (6.4-8.2)
[2021-03-20] MEDS ORDERED: TAMIFLU 75MG CA75 MG PO (23:05)
== END 2021-03-20 23:32 | disposition home or self-care (01) ==
LOC: ED 17:43
PROVIDERS: Emergency Medicine
DX: J10.1 Influenza due to other identified influenza virus with other respiratory manifestations (principal); Z20.822 Contact with and (suspected) exposure to COVID-19; Z88.6 Allergy status to analgesic agent; Z88.1 Allergy status to other antibiotic agents; Z79.899 Other long term (current) drug therapy; F17.200 Nicotine dependence, unspecified, uncomplicated

== ENCOUNTER 2021-09-24 06:55 | Emergency (ER) | payer MEDICARE, OTHER ==
[~2021-09-24] VITALS: Ht 162.5 cm; Wt 90.7 kg
[~2021-09-24 06:55] MED LIST changes: +TAMIFLU 75MG CA75 MG PO
[2021-09-24 07:04] VITALS: BP 159/84
== END 2021-09-24 09:09 | disposition home or self-care (01) ==
LOC: ED 06:55
DX: S90.111A Contusion of right great toe without damage to nail, initial encounter (principal); Z88.6 Allergy status to analgesic agent; Z88.1 Allergy status to other antibiotic agents; Z79.899 Other long term (current) drug therapy; Z90.710 Acquired absence of both cervix and uterus; Z90.89 Acquired absence of other organs; Z98.890 Other specified postprocedural states; Z87.891 Personal history of nicotine dependence; W22.8XXA Striking against or struck by other objects, initial encounter; Y93.89 Activity, other specified; Y92.89 Other specified places as the place of occurrence of the external cause; Y99.8 Other external cause status

== ENCOUNTER 2021-10-09 19:29 | Emergency (ER) | payer MEDICARE, OTHER ==
[2021-10-09 19:47] VITALS: BP 154/75
== END 2021-10-09 22:13 | disposition home or self-care (01) ==
LOC: ED 19:29
DX: M25.521 Pain in right elbow (principal); Z88.1 Allergy status to other antibiotic agents; Z79.899 Other long term (current) drug therapy; Z90.710 Acquired absence of both cervix and uterus; Z90.89 Acquired absence of other organs; Z90.49 Acquired absence of other specified parts of digestive tract; Z98.890 Other specified postprocedural states; F17.200 Nicotine dependence, unspecified, uncomplicated

== ENCOUNTER 2021-11-24 08:00 | Emergency (ER) | payer MEDICARE, OTHER ==
[~2021-11-24] VITALS: Ht 167.6 cm; Wt 77.1 kg
[2021-11-24 08:21] VITALS: BP 158/84
[2021-11-24 08:39] LABS: BASO # 0.1 10*3/uL (0.0-0.1); BASO % 0.6 % (0.0-1.0); EOS # 0.3 10*3/uL (0.0-0.4); EOS % 2.6 % (1.0-4.0); HEMATOCRIT 46.6 % (37.0-47.0); LYMPH # 2.9 10*3/uL (1.3-4.4); LYMPH % 27.1 % (27.0-41.0); MEAN CELL VOLUME 94.7 fl (81.0-99.0); MEAN CORPUSCULAR HGB 33.3 pg (27.0-31.0); MEAN CORPUSCULAR HGB CONC 35.2 g/dl (33.0-37.0); MEAN PLATELET VOLUME 9.9 fl (9.6-12.3); MONO # 0.6 10*3/uL (0.1-1.0); MONO % 5.1 % (3.0-9.0); NEUT % 64.2 % (47.0-73.0); PLATELET COUNT AUTOMATED 200 10*3/uL (130-400); RED BLOOD COUNT 4.92 10*6/uL (4.10-5.10); RED CELL DISTRI WIDTH 12.9 % (0-14.5); WHITE BLOOD COUNT 10.9 10*3/uL (4.8-10.8)
[2021-11-24 09:00] LABS: ALKALINE PHOSPHATASE 79 U/L (45-117); BUN 13 mg/dl (7-24); CHLORIDE 105 mmol/L (98-107); SGOT/AST 32 IU/L (3-35); SGPT/ALT 48 U/L (12-78); SODIUM 137 mmol/L (136-145); TOTAL PROTEIN 8.1 gm/dL (6.4-8.2)
[2021-11-24] MEDS ORDERED: PREDNISONE10 MG PO (10:52)
== END 2021-11-24 11:18 | disposition home or self-care (01) ==
LOC: ED 08:00
PROVIDERS: Family Medicine
DX: R09.1 Pleurisy (principal); Z88.1 Allergy status to other antibiotic agents; Z79.899 Other long term (current) drug therapy; Z90.710 Acquired absence of both cervix and uterus; Z90.89 Acquired absence of other organs; Z98.890 Other specified postprocedural states; Z90.49 Acquired absence of other specified parts of digestive tract; F17.200 Nicotine dependence, unspecified, uncomplicated

== ENCOUNTER 2022-01-15 08:52 | Emergency (ER) | payer MEDICARE, OTHER ==
[~2022-01-15] VITALS: Wt 90.7 kg
[2022-01-15 08:59] VITALS: BP 152/87
[2022-01-15 10:24] LABS: BASO % 0.4 % (0.0-1.0); EOS # 0.1 10*3/uL (0.0-0.4); EOS % 1.4 % (1.0-4.0); HEMATOCRIT 46.2 % (37.0-47.0); LYMPH % 32.3 % (27.0-41.0); MEAN CELL VOLUME 96.3 fl (81.0-99.0); MEAN CORPUSCULAR HGB 33.3 pg (27.0-31.0); MEAN CORPUSCULAR HGB CONC 34.6 g/dl (33.0-37.0); MEAN PLATELET VOLUME 10.5 fl (9.6-12.3); MONO # 0.5 10*3/uL (0.1-1.0); MONO % 4.9 % (3.0-9.0); NEUT # 5.7 10*3/uL (2.3-7.9); NEUT % 60.7 % (47.0-73.0); PLATELET COUNT AUTOMATED 170 10*3/uL (130-400); RED CELL DISTRI WIDTH 12.7 % (0-14.5); WHITE BLOOD COUNT 9.4 10*3/uL (4.8-10.8)
[2022-01-15 10:39] LABS: ACT PARTIAL THROMBO TIME 25.6 SECONDS (20.0-32.1)
[2022-01-15 10:41] LABS: ALKALINE PHOSPHATASE 92 U/L (45-117); BUN 7 mg/dl (7-24); CHLORIDE 103 mmol/L (98-107); CREATININE 0.79 mg/dL (0.55-1.02); LIPASE 369 U/L (73-393); POTASSIUM 3.8 mmol/L (3.5-5.1); SGOT/AST 35 IU/L (3-35); SGPT/ALT 48 U/L (12-78); SODIUM 137 mmol/L (136-145); TOTAL PROTEIN 8.1 gm/dL (6.4-8.2)
[2022-01-15] MEDS ORDERED: PREDNISONE50 MG PO (15:47)
[2022-01-15] MEDS ORDERED: ZITHROMAX250 MG PO (15:47)
== END 2022-01-15 15:53 | disposition home or self-care (01) ==
LOC: ED 08:52
PROVIDERS: Emergency Medicine
DX: J20.9 Acute bronchitis, unspecified (principal); Z20.822 Contact with and (suspected) exposure to COVID-19; R51.9 Headache, unspecified; F12.10 Cannabis abuse, uncomplicated; F17.200 Nicotine dependence, unspecified, uncomplicated; Z79.899 Other long term (current) drug therapy; Z88.1 Allergy status to other antibiotic agents

== ENCOUNTER → 2022-02-13 | Outpatient (CLI) | payer MEDICARE, OTHER ==
[~2022-02-13] MED LIST changes: +ZITHROMAX250 MG PO
== END | disposition home or self-care (01) ==
LOC: RAD 12:29
PROVIDERS: ATTEND Nurse Practitioner Family
DX: M25.561 Pain in right knee (principal)

== ENCOUNTER 2022-04-15 22:43 | Emergency (ER) | payer MEDICARE, OTHER ==
[~2022-04-15] VITALS: Ht 162.5 cm; Wt 86.2 kg
[2022-04-15 22:47] VITALS: BP 145/79
[2022-04-15] MEDS ORDERED: NAPROXEN250 MG PO (23:39)
== END 2022-04-15 23:45 | disposition home or self-care (01) ==
LOC: ED 22:43
DX: S46.912A Strain of unspecified muscle, fascia and tendon at shoulder and upper arm level, left arm, initial encounter (principal); Z88.1 Allergy status to other antibiotic agents; Z79.899 Other long term (current) drug therapy; Z90.89 Acquired absence of other organs; Z90.711 Acquired absence of uterus with remaining cervical stump; Z90.49 Acquired absence of other specified parts of digestive tract; F17.200 Nicotine dependence, unspecified, uncomplicated; X58.XXXA Exposure to other specified factors, initial encounter; Y93.89 Activity, other specified; Y92.89 Other specified places as the place of occurrence of the external cause; Y99.8 Other external cause status

== ENCOUNTER → 2022-08-21 | Outpatient (CLI) | payer OTHER ==
[~2022-08-21] MED LIST changes: +NAPROXEN250 MG PO
== END | disposition home or self-care (01) ==
LOC: MAMMO 11:26
PROVIDERS: ATTEND Nurse Practitioner
DX: Z12.31 Encounter for screening mammogram for malignant neoplasm of breast (principal); N64.89 Other specified disorders of breast

== ENCOUNTER 2022-12-25 05:24 | Inpatient (IN) | payer OTHER ==
[~2022-12-25] VITALS: Ht 162.5 cm; Wt 88.5 kg
[2022-12-25 05:30] VITALS: BP 135/77
[2022-12-25 05:52] VITALS: BP 134/79
[2022-12-25 05:54] LABS: BASO # 0.1 10*3/uL (0.0-0.1); BASO % 0.4 % (0.0-1.0); EOS # 0.1 10*3/uL (0.0-0.4); EOS % 0.6 % (1.0-4.0); HEMATOCRIT 47.3 % (37.0-47.0); LYMPH # 3.1 10*3/uL (1.3-4.4); LYMPH % 19.2 % (27.0-41.0); MEAN CELL VOLUME 97.7 fl (81.0-99.0); MEAN CORPUSCULAR HGB 34.5 pg (27.0-31.0); MEAN CORPUSCULAR HGB CONC 35.3 g/dl (33.0-37.0); MEAN PLATELET VOLUME 10.6 fl (9.6-12.3); MONO % 5.9 % (3.0-9.0); NEUT # 11.8 10*3/uL (2.3-7.9); NEUT % 72.3 % (47.0-73.0); PLATELET COUNT AUTOMATED 179 10*3/uL (130-400); RED BLOOD COUNT 4.84 10*6/uL (4.10-5.10); RED CELL DISTRI WIDTH 12.9 % (0-14.5); WHITE BLOOD COUNT 16.2 10*3/uL (4.8-10.8)
[2022-12-25 06:08] LABS: ALKALINE PHOSPHATASE 91 U/L (46-116); BUN 5 mg/dl (9-23); CHLORIDE 104 mmol/L (98-107); LIPASE 64 U/L (12-53); POTASSIUM 3.6 mmol/L (3.4-5.1); SGPT/ALT 42 U/L (10-49); TOTAL PROTEIN 7.9 gm/dL (6.0-8.0)
[2022-12-25 06:16] LABS: ACT PARTIAL THROMBO TIME 27.8 SECONDS (20.0-32.1)
[2022-12-25 07:07] LABS: URINE AMPHETAMINES Negative (1000ng/ml); URINE BARBITURATES Negative (200ng/ml); URINE BENZODIAZEPINES Negative (200ng/ml); URINE CANNABINOIDS (THC) Negative (50ng/ml); URINE COCAINE Positive (300ng/ml); URINE METHADONE Negative (300ng/ml); URINE OPIATES Negative (300ng/ml); URINE PHENCYCLIDINE Negative (25ng/ml)
[2022-12-25 07:55] VITALS: BP 133/67
[2022-12-25 11:39] VITALS: BP 111/61
[2022-12-25 15:30] VITALS: BP 119/77
[2022-12-25 20:00] VITALS: BP 123/68
[2022-12-26] VITALS: BP 125/64
[2022-12-26 06:40] LABS: BASO # 0.1 10*3/uL (0.0-0.1); BASO % 0.4 % (0.0-1.0); EOS # 0.2 10*3/uL (0.0-0.4); EOS % 1.9 % (1.0-4.0); HEMATOCRIT 42.9 % (37.0-47.0); LYMPH # 2.5 10*3/uL (1.3-4.4); MEAN CELL VOLUME 100.5 fl (81.0-99.0); MEAN CORPUSCULAR HGB 34.4 pg (27.0-31.0); MEAN CORPUSCULAR HGB CONC 34.3 g/dl (33.0-37.0); MEAN PLATELET VOLUME 11.1 fl (9.6-12.3); MONO # 0.5 10*3/uL (0.1-1.0); MONO % 4.3 % (3.0-9.0); NEUT # 8.5 10*3/uL (2.3-7.9); NEUT % 72.1 % (47.0-73.0); RED BLOOD COUNT 4.27 10*6/uL (4.10-5.10); RED CELL DISTRI WIDTH 13.2 % (0-14.5); WHITE BLOOD COUNT 11.8 10*3/uL (4.8-10.8)
[2022-12-26 07:42] LABS: BUN 8 mg/dl (9-23); CHLORIDE 106 mmol/L (98-107); CHOLESTEROL 164 mg/dL (<200); FREE T4 0.95 ng/dl (0.89-1.76); LDL CHOLESTEROL 87 mg/dL (9-159); POTASSIUM 3.7 mmol/L (3.4-5.1); TRIGLYCERIDES 116 mg/dl (<150)
[2022-12-26 07:49] LABS: PLATELET COUNT AUTOMATED 122 10*3/uL (130-400)
[2022-12-26 08:00] VITALS: BP 121/94
[2022-12-26 08:53] LABS: VITAMIN D, 25-HYDROXY 19.1 ng/mL (30-100)
[2022-12-26 12:00] VITALS: BP 129/74
[2022-12-26 16:00] VITALS: BP 136/69
[2022-12-26 20:00] VITALS: BP 143/77
[2022-12-27] VITALS: BP 133/71
[2022-12-27 08:00] VITALS: BP 127/85
[2022-12-27 12:00] VITALS: BP 128/79
[2022-12-27 16:15] VITALS: BP 109/69
[2022-12-27 20:00] VITALS: BP 118/71
[2022-12-28] VITALS: BP 104/51
[2022-12-28 06:47] LABS: BASO % 0.5 % (0.0-1.0); EOS # 0.4 10*3/uL (0.0-0.4); EOS % 5.2 % (1.0-4.0); HEMATOCRIT 41.1 % (37.0-47.0); LYMPH # 2.3 10*3/uL (1.3-4.4); LYMPH % 27.5 % (27.0-41.0); MEAN CELL VOLUME 99.8 fl (81.0-99.0); MEAN CORPUSCULAR HGB 33.5 pg (27.0-31.0); MEAN CORPUSCULAR HGB CONC 33.6 g/dl (33.0-37.0); MEAN PLATELET VOLUME 10.7 fl (9.6-12.3); MONO # 0.5 10*3/uL (0.1-1.0); MONO % 6.1 % (3.0-9.0); NEUT # 5.1 10*3/uL (2.3-7.9); NEUT % 60.1 % (47.0-73.0); PLATELET COUNT AUTOMATED 155 10*3/uL (130-400); RED BLOOD COUNT 4.12 10*6/uL (4.10-5.10); RED CELL DISTRI WIDTH 12.9 % (0-14.5); WHITE BLOOD COUNT 8.5 10*3/uL (4.8-10.8)
[2022-12-28 07:02] LABS: ALKALINE PHOSPHATASE 84 U/L (46-116); BUN 12 mg/dl (9-23); CHLORIDE 104 mmol/L (98-107); SGPT/ALT 22 U/L (10-49); TOTAL PROTEIN 6.8 gm/dL (6.0-8.0)
[2022-12-28 08:00] VITALS: BP 116/66
[2022-12-28 12:00] VITALS: BP 110/69
[2022-12-28 16:00] VITALS: BP 112/64
[2022-12-28 20:00] VITALS: BP 149/65
[2022-12-29] VITALS: BP 143/85
[2022-12-29 07:15] LABS: BASO % 0.6 % (0.0-1.0); EOS # 0.4 10*3/uL (0.0-0.4); EOS % 5.5 % (1.0-4.0); HEMATOCRIT 41.9 % (37.0-47.0); LYMPH # 1.8 10*3/uL (1.3-4.4); LYMPH % 27.2 % (27.0-41.0); MEAN CORPUSCULAR HGB 34.4 pg (27.0-31.0); MEAN CORPUSCULAR HGB CONC 34.4 g/dl (33.0-37.0); MEAN PLATELET VOLUME 10.6 fl (9.6-12.3); MONO # 0.6 10*3/uL (0.1-1.0); MONO % 8.5 % (3.0-9.0); NEUT # 3.9 10*3/uL (2.3-7.9); NEUT % 57.5 % (47.0-73.0); PLATELET COUNT AUTOMATED 138 10*3/uL (130-400); RED BLOOD COUNT 4.19 10*6/uL (4.10-5.10); RED CELL DISTRI WIDTH 12.9 % (0-14.5); WHITE BLOOD COUNT 6.7 10*3/uL (4.8-10.8)
[2022-12-29 07:40] LABS: ALKALINE PHOSPHATASE 81 U/L (46-116); BUN 13 mg/dl (9-23); CHLORIDE 105 mmol/L (98-107); SGPT/ALT 33 U/L (10-49); TOTAL PROTEIN 6.9 gm/dL (6.0-8.0)
[2022-12-29 08:00] VITALS: BP 143/82
[2022-12-29] MEDS ORDERED: CEPHALEXIN500 M1 PO (09:24)
[2022-12-29] MEDS ORDERED: SEPTDS PO (09:24)
== END 2022-12-29 09:17 | disposition left against medical advice (07) | DRG 872 ==
LOC: ED → EDHOLD 09:02 → 4E 09:02
PROVIDERS: Internal Medicine; Registered Nurse; Student in an Organized Health Care Education/Training Program; ADMIT Family Medicine; ATTEND Family Medicine
DX: A41.9 Sepsis, unspecified organism (principal); L03.221 Cellulitis of neck; K21.9 Gastro-esophageal reflux disease without esophagitis; F41.1 Generalized anxiety disorder; I10 Essential (primary) hypertension; E55.9 Vitamin D deficiency, unspecified; F12.90 Cannabis use, unspecified, uncomplicated; E11.65 Type 2 diabetes mellitus with hyperglycemia; R91.1 Solitary pulmonary nodule; E66.01 Morbid (severe) obesity due to excess calories; E11.40 Type 2 diabetes mellitus with diabetic neuropathy, unspecified; Z53.29 Procedure and treatment not carried out because of patient's decision for other reasons; J44.9 Chronic obstructive pulmonary disease, unspecified; F17.210 Nicotine dependence, cigarettes, uncomplicated; Z88.1 Allergy status to other antibiotic agents; Z91.048 Other nonmedicinal substance allergy status; Z79.899 Other long term (current) drug therapy; Z79.84 Long term (current) use of oral hypoglycemic drugs; Z90.710 Acquired absence of both cervix and uterus; Z98.891 History of uterine scar from previous surgery; Z90.49 Acquired absence of other specified parts of digestive tract; Z82.49 Family history of ischemic heart disease and other diseases of the circulatory system; Z80.9 Family history of malignant neoplasm, unspecified; Z68.33 Body mass index [BMI] 33.0-33.9, adult; Z86.19 Personal history of other infectious and parasitic diseases

== ENCOUNTER → 2023-01-13 | Outpatient (CLI) | payer OTHER | END | disposition home or self-care (01) | LOC: WOUNDCARE 01:48 | PROVIDERS: ATTEND Nurse Practitioner Family | DX: L02.11 Cutaneous abscess of neck (principal); L03.221 Cellulitis of neck; A41.9 Sepsis, unspecified organism; E11.65 Type 2 diabetes mellitus with hyperglycemia; E11.40 Type 2 diabetes mellitus with diabetic neuropathy, unspecified; D72.829 Elevated white blood cell count, unspecified; I10 Essential (primary) hypertension; J44.9 Chronic obstructive pulmonary disease, unspecified; K21.9 Gastro-esophageal reflux disease without esophagitis; F41.9 Anxiety disorder, unspecified; F17.210 Nicotine dependence, cigarettes, uncomplicated; Z90.710 Acquired absence of both cervix and uterus ==

== ENCOUNTER 2023-12-11 23:20 | Emergency (ER) | payer OTHER ==
[~2023-12-11] VITALS: Ht 162.5 cm; Wt 84.8 kg
[2023-12-11] MEDS ORDERED: methylPREDNISolone sod succ 125 MG VIAL IV ONE (23:40)
[2023-12-11] MEDS ORDERED: Albuterol Sulf/Ipratropium 3 ML VIAL NEB ONE (23:40)
[2023-12-11] MEDS ORDERED: Ondansetron Hydrochloride 4 MG/2 ML VIAL IV ONE (23:45)
[2023-12-12] LABS: BASO # 0.1 10*3/uL (0.0-0.1); BASO % 0.8 % (0.0-1.0); EOS # 0.1 10*3/uL (0.0-0.4); EOS % 1.8 % (1.0-4.0); LYMPH # 2.1 10*3/uL (1.3-4.4); LYMPH % 26.6 % (27.0-41.0); MEAN PLATELET VOLUME 10.4 fl (9.6-12.3); MONO # 0.5 10*3/uL (0.1-1.0); MONO % 6.1 % (3.0-9.0); NEUT # 5.2 10*3/uL (2.3-7.9); NEUT % 64.4 % (47.0-73.0); PLATELET COUNT AUTOMATED 177 10*3/uL (130-400)
[2023-12-12] MEDS ORDERED: NEURONTIN300 MG PO (00:07)
[2023-12-12] MEDS ORDERED: ESOMEPRAZOLE MA40 M1 PO (00:08)
[2023-12-12 00:11] LABS: ACT PARTIAL THROMBO TIME 24.9 SECONDS (20.0-32.1)
[2023-12-12 00:22] LABS: ALKALINE PHOSPHATASE 85 U/L (46-116); BUN 11 mg/dl (9-23); CHLORIDE 109 mmol/L (98-107); POTASSIUM 3.3 mmol/L (3.4-5.1); SGPT/ALT 39 U/L (5-49); TOTAL PROTEIN 8.4 gm/dL (6.0-8.0)
[2023-12-12 01:11] VITALS: BP 148/78
== END 2023-12-12 02:11 | disposition short-term general hospital (02) ==
LOC: ED 23:20
PROVIDERS: Internal Medicine
DX: T17.208A Unspecified foreign body in pharynx causing other injury, initial encounter (principal); R11.10 Vomiting, unspecified; R06.02 Shortness of breath; F41.9 Anxiety disorder, unspecified; F32.A Depression, unspecified; M19.90 Unspecified osteoarthritis, unspecified site; J44.9 Chronic obstructive pulmonary disease, unspecified; K21.9 Gastro-esophageal reflux disease without esophagitis; I10 Essential (primary) hypertension; F17.210 Nicotine dependence, cigarettes, uncomplicated; F12.10 Cannabis abuse, uncomplicated; Z91.048 Other nonmedicinal substance allergy status; Z88.1 Allergy status to other antibiotic agents; Z98.890 Other specified postprocedural states; Z90.49 Acquired absence of other specified parts of digestive tract; Z90.711 Acquired absence of uterus with remaining cervical stump; Z90.89 Acquired absence of other organs; W44.9XXA Unspecified foreign body entering into or through a natural orifice, initial encounter; Y93.89 Activity, other specified; Y92.89 Other specified places as the place of occurrence of the external cause; Y99.8 Other external cause status

== ENCOUNTER 2024-09-25 04:49 | Inpatient (IN) | payer OTHER ==
[~2024-09-25] VITALS: Ht 162.5 cm; Wt 83.2 kg
[~2024-09-25 04:49] MED LIST changes: +ESOMEPRAZOLE MA40 M1 PO; +PERCOCET 5-3251 EACH PO
[2024-09-25 05:04] VITALS: BP 132/69
[2024-09-25] MEDS ORDERED: SODIUM CHLORIDE 0.9% 500 ML IV ONE (05:15)
[2024-09-25] MEDS ORDERED: MORPHINE Sulfate 2 MG/ML SYR IV ONE (05:15)
[2024-09-25] MEDS ORDERED: Ondansetron Hydrochloride 4 MG/2 ML VIAL IV ONE (05:15)
[2024-09-25] MEDS ORDERED: IOHEXOL 300 MG/ML 100 ML VIAL IV ONE (05:25)
[2024-09-25 05:53] LABS: BASO # 0.1 10*3/uL (0.0-0.1); BASO % 0.6 % (0.0-1.0); EOS # 0.6 10*3/uL (0.0-0.4); HEMATOCRIT 45.7 % (37.0-47.0); MEAN CELL VOLUME 96.4 fl (81.0-99.0); MEAN CORPUSCULAR HGB 33.3 pg (27.0-31.0); MEAN CORPUSCULAR HGB CONC 34.6 g/dl (33.0-37.0); MEAN PLATELET VOLUME 10.6 fl (9.6-12.3); MONO # 0.8 10*3/uL (0.1-1.0); MONO % 5.7 % (3.0-9.0); PLATELET COUNT AUTOMATED 223 10*3/uL (130-400); RED BLOOD COUNT 4.74 10*6/uL (4.10-5.10); RED CELL DISTRI WIDTH 12.5 % (0-14.5); WHITE BLOOD COUNT 13.9 10*3/uL (4.8-10.8)
[2024-09-25 05:57] LABS: BUN 10 mg/dl (9-23); CHLORIDE 103 mmol/L (98-107); POTASSIUM 3.9 mmol/L (3.4-5.1)
[2024-09-25] MEDS ORDERED: CLINDAMYCIN PHOSPHATE IV STA (06:32)
[2024-09-25] MEDS ORDERED: Clindamycin Phosphate 50 ML IV ONE (06:45)
[2024-09-25] MEDS ORDERED: HYDROmorphONE Hydrochloride 0.5 MG/0.5 ML SYRINGE IV ONE (06:50)
[2024-09-25] MEDS ORDERED: BISACODYL 10 MG SUPP R PRN (10:25)
[2024-09-25] MEDS ORDERED: Acetaminophen/Hydrocodone 5 MG/325 MG TABLET PO PRN (10:25)
[2024-09-25] MEDS ORDERED: Magnesium Hydroxide 30 ML UDC PO PRN (10:25)
[2024-09-25] MEDS ORDERED: MORPHINE Sulfate 2 MG/ML SYR IV PRN (10:25)
[2024-09-25] MEDS ORDERED: BISACODYL 5 MG TAB PO PRN (10:25)
[2024-09-25] MEDS ORDERED: ACETAMINOPHEN 650 MG SUPP R PRN (10:25)
[2024-09-25] MEDS ORDERED: Ondansetron Hydrochloride 4 MG/2 ML VIAL IV PRN (10:25)
[2024-09-25] MEDS ORDERED: ACETAMINOPHEN 325 MG TAB PO PRN (10:25)
[2024-09-25] MEDS ORDERED: TEMAZEPAM 15 MG CAP PO PRN (10:25)
[2024-09-25] MEDS ORDERED: Vancomycin Hydrochloride 1,000 MG in SODIUM CHLORIDE 0.9% 250 ML IV SCH ×2 (10:35→12:00)
[2024-09-25] MEDS ORDERED: Piperacillin Sodium/Tazobact 50 ML IV SCH (11:00)
[2024-09-25] MEDS ORDERED: GLIPIZIDE5 M1 PO (11:16)
[2024-09-25] MEDS ORDERED: ATARAX,VISTARIL10 MG PO (11:23)
[2024-09-25 12:02] VITALS: BP 125/78
[2024-09-25 13:22] LABS: BILIRUBIN Negative (Negative); BLOOD Negative (Negative); CLARITY Clear (Clear); COLOR Yellow (Yellow); GLUCOSE Trace (Negative); KETONE Negative (Negative); LEUKO ESTERASE Negative (Negative); NITRITE Negative (Negative); SPECIFIC GRAVITY >= 1.030 (1.001-1.030)
[2024-09-25 13:32] LABS: BACTERIA 1+; RBC 0-2 rbc/hpf (0-2)
[2024-09-25 16:00] VITALS: BP 108/69
[2024-09-25 20:00] VITALS: BP 104/70
[2024-09-25] MEDS ORDERED: DEXTROSE 50% 25 GM/50 ML VIAL IV PRN (21:55)
[2024-09-25] MEDS ORDERED: GABAPENTIN 300 MG CAP PO SCH (22:00)
[2024-09-25] MEDS ORDERED: INSULIN LISPRO 1 UNIT/0.01 ML SQ SCH (22:00)
[2024-09-26] VITALS: BP 106/70
[2024-09-26] MEDS ORDERED: Pantoprazole Sodium 40 MG TAB PO SCH (06:00)
[2024-09-26 06:27] LABS: BASO % 0.2 % (0.0-1.0); EOS # 0.5 10*3/uL (0.0-0.4); EOS % 5.3 % (1.0-4.0); HEMATOCRIT 41.5 % (37.0-47.0); MEAN CELL VOLUME 98.1 fl (81.0-99.0); MEAN CORPUSCULAR HGB 33.3 pg (27.0-31.0); MEAN PLATELET VOLUME 10.6 fl (9.6-12.3); MONO # 0.5 10*3/uL (0.1-1.0); NEUT # 7.7 10*3/uL (2.3-7.9); RED BLOOD COUNT 4.23 10*6/uL (4.10-5.10); RED CELL DISTRI WIDTH 12.9 % (0-14.5); WHITE BLOOD COUNT 9.5 10*3/uL (4.8-10.8)
[2024-09-26 06:36] LABS: PLATELET COUNT AUTOMATED 133 10*3/uL (130-400)
[2024-09-26 06:55] LABS: VITAMIN D, 25-HYDROXY 13.3 ng/mL (30-100)
[2024-09-26 06:56] LABS: ALKALINE PHOSPHATASE 137 U/L (46-116); BUN 12 mg/dl (9-23); CHLORIDE 104 mmol/L (98-107); CHOLESTEROL 154 mg/dL (<200); LDL CHOLESTEROL 84 mg/dL (9-159); POTASSIUM 3.9 mmol/L (3.4-5.1); SGPT/ALT 29 U/L (5-49); TOTAL PROTEIN 6.4 gm/dL (6.0-8.0); TRIGLYCERIDES 111 mg/dl (<150)
[2024-09-26 08:00] VITALS: BP 115/81
[2024-09-26] MEDS ORDERED: METOPROLOL SUCCINATE XR 25 MG TAB PO SCH (10:00)
[2024-09-26] MEDS ORDERED: Enoxaparin Sodium 40 MG/0.4 ML SYR SC SCH (10:00)
[2024-09-26] MEDS ORDERED: Nicotine 21 MG PATCH T SCH (10:00)
[2024-09-26] MEDS ORDERED: Losartan Potassium 100 MG TABLET PO SCH (10:00)
[2024-09-26] MEDS ORDERED: FARXIGA 5 MG PO SCH (10:00)
[2024-09-26] MEDS ORDERED: VIBRAMYCIN100 MG PO (10:38)
== END 2024-09-26 11:12 | disposition left against medical advice (07) | DRG 603 ==
LOC: ED 04:49 → 4E 09:24 → EDHOLD 09:24 → 4E 10:08
PROVIDERS: Emergency Medicine; ADMIT Internal Medicine; ATTEND Internal Medicine
DX: L03.211 Cellulitis of face (principal); E87.1 Hypo-osmolality and hyponatremia; Z53.29 Procedure and treatment not carried out because of patient's decision for other reasons; F17.210 Nicotine dependence, cigarettes, uncomplicated; J44.9 Chronic obstructive pulmonary disease, unspecified; I10 Essential (primary) hypertension; F41.1 Generalized anxiety disorder; E11.40 Type 2 diabetes mellitus with diabetic neuropathy, unspecified; E66.9 Obesity, unspecified; D72.829 Elevated white blood cell count, unspecified; E11.65 Type 2 diabetes mellitus with hyperglycemia; E55.9 Vitamin D deficiency, unspecified; Z88.8 Allergy status to other drugs, medicaments and biological substances; Z91.09 Other allergy status, other than to drugs and biological substances; Z79.899 Other long term (current) drug therapy; Z79.01 Long term (current) use of anticoagulants; Z79.2 Long term (current) use of antibiotics; Z90.49 Acquired absence of other specified parts of digestive tract; Z90.711 Acquired absence of uterus with remaining cervical stump; Z82.49 Family history of ischemic heart disease and other diseases of the circulatory system; Z80.8 Family history of malignant neoplasm of other organs or systems; Z68.31 Body mass index [BMI] 31.0-31.9, adult

== ENCOUNTER → 2024-09-30 | Outpatient (CLI) | payer OTHER ==
[~2024-09-30] MED LIST changes: +ATARAX,VISTARIL10 MG PO; +GLIPIZIDE5 M1 PO
== END | disposition home or self-care (01) ==
LOC: ORTHO 01:29
PROVIDERS: ATTEND Orthopaedic Surgery
DX: M17.11 Unilateral primary osteoarthritis, right knee (principal); M25.561 Pain in right knee

== ENCOUNTER 2025-03-16 08:12 | Emergency (ER) | payer OTHER ==
[~2025-03-16] VITALS: Ht 165.1 cm; Wt 90.7 kg
[2025-03-16 08:12] VITALS: BP 123/74
[~2025-03-16 08:12] MED LIST changes: +AIRSUPRA 90-810.7 GM INH; +HYDROXYZINE HCL25 MG PO; +PRAVASTATIN SOD20 MG PO; +REMERON15 M2 PO
[2025-03-16 10:25] LABS: BASO # 0.0 10*3/uL (0.0-0.1); BASO % 0.5 % (0.0-1.0); EOS # 0.1 10*3/uL (0.0-0.4); EOS % 1.1 % (1.0-4.0); MEAN CELL VOLUME 89.9 fl (81.0-99.0); MEAN CORPUSCULAR HGB 32.3 pg (27.0-31.0); MEAN PLATELET VOLUME 8.4 fl (9.6-12.3); MONO # 0.8 10*3/uL (0.1-1.0); MONO % 9.4 % (3.0-9.0); NEUT # 5.4 10*3/uL (2.3-7.9); NEUT % 67.1 % (47.0-73.0); NUCLEATED RED BLOOD CELL 0.0 % (0.0-0.0); NUCLEATED RED BLOOD CELL 0.0 10*3/uL (0.0-0.0); PLATELET COUNT AUTOMATED 270 10*3/uL (130-400); RED CELL DISTRI WIDTH 12.3 % (0-14.5)
[2025-03-16 10:54] LABS: SGPT/ALT 25 U/L (5-49)
[2025-03-16 10:55] LABS: BUN < 5 mg/dl (9-23)
[2025-03-16 11:09] LABS: URINE AMPHETAMINES Negative (1000ng/ml); URINE BARBITURATES Negative (200ng/ml); URINE BENZODIAZEPINES Negative (200ng/ml); URINE CANNABINOIDS (THC) Positive (50ng/ml); URINE COCAINE Positive (300ng/ml); URINE METHADONE Negative (300ng/ml); URINE OPIATES Negative (300ng/ml); URINE PHENCYCLIDINE Negative (25ng/ml)
[2025-03-16 11:34] LABS: BILIRUBIN Negative (Negative); BLOOD Negative (Negative); CLARITY Clear (Clear); COLOR Yellow (Yellow); KETONE Negative (Negative); LEUKO ESTERASE Trace (Negative); NITRITE Negative (Negative); PH 8.0 (4.5-8.0); SPECIFIC GRAVITY <= 1.005 (1.001-1.030); UROBILINOGEN 1.0 E.U./dl (0.0-1.0)
[2025-03-16 11:50] LABS: BACTERIA 2+
[2025-03-16] MEDS ORDERED: POTASSIUM CHLORIDE 20 MEQ TAB PO ONE (12:25)
[2025-03-16] MEDS ORDERED: CEPHALEXIN 500 MG CAP PO ONE (12:25)
[2025-03-16] MEDS ORDERED: POTASSIUM CHLO20 ME3 PO (14:16)
[2025-03-16] MEDS ORDERED: CIPRO250 MG PO (14:16)
== END 2025-03-16 14:20 | disposition home or self-care (01) ==
LOC: ED 08:12
DX: R10.31 Right lower quadrant pain (principal); F11.90 Opioid use, unspecified, uncomplicated; F41.9 Anxiety disorder, unspecified; F32.A Depression, unspecified; M19.90 Unspecified osteoarthritis, unspecified site; J44.9 Chronic obstructive pulmonary disease, unspecified; K21.9 Gastro-esophageal reflux disease without esophagitis; I10 Essential (primary) hypertension; Z90.710 Acquired absence of both cervix and uterus; Z98.890 Other specified postprocedural states; Z90.89 Acquired absence of other organs; Z90.49 Acquired absence of other specified parts of digestive tract; Z88.8 Allergy status to other drugs, medicaments and biological substances; Z88.1 Allergy status to other antibiotic agents